=== PATIENT | female | born 1980 | race Caucasian/White ===

== ENCOUNTER 2018-07-07 09:39 | Emergency (ER) | payer MEDICAID ==
[~2018-07-07] VITALS: Ht 170.2 cm; Wt 118.2 kg
[~2018-07-07 09:39] MED LIST: CYCL-1 PO; DIPH25CA83 PO; NABU500T2 PO
[2018-07-07 10:09] LABS: CLARITY,URINE SLIGHTLY CLOUDY (Clear); COLOR,URINE YELLOW (Yellow); GLUCOSE, URINE NEGATIVE (Neg); KETONES,URINE NEGATIVE (Neg); LEUKOCYTE ESTERASE ,URINE NEGATIVE (Neg); NITRITES, URINE NEGATIVE (Neg); OCCULT BLOOD,URINE TRACE-INTACT (Neg); PROTEIN,URINE TRACE mg/dl (Neg); UROBILINOGEN,URINE 0.2 E.U/dL (0.2-1.0)
[2018-07-07 10:10] LABS: UA COLLECTION TYPE CLN CATCH MIDSTREAM; URINE HCG NEGATIVE (NEG)
[2018-07-07 10:16] LABS: MUCUS STRANDS FEW /LPF (Neg); SQUAMOUS EPITHELIAL CELL,UR MANY /LPF (FEW)
[2018-07-07 10:18] LABS: BACTERIA,URINE 2+ /HPF (Neg); RBC,URINE 0-2 /HPF (0-2); RENAL CELLS, URINE FEW /HPF; TRANSITIONAL EPI CELLS,URINE FEW /HPF; WBC,URINE 0-4 /HPF (0-4)
[2018-07-07 10:24] LABS: BASOPHILS % (AUTO) 0.1 % (0-1); EOSINOPHILS % (AUTO) 0 % (0-6); HEMATOCRIT 41.1 % (35.0-45.0); HEMOGLOBIN 13.6 g/dl (12.0-16.0); LYMPHOCYTES # (AUTO) 0.4 X10'3 (1.1-4.8); LYMPHOCYTES % (AUTO) 7.9 % (21-51); MEAN CORPUSCULAR HEMOGLOBIN 28.7 PG (27.0-31.0); MEAN CORPUSCULAR HGB CONC 33.1 % (33.0-36.5); MEAN CORPUSCULAR VOLUME 86.6 FL (78-98); MEAN PLATELET VOLUME 11.1 FL (7.4-10.4); MONOCYTES # (AUTO) 0.2 X10'3 (0-0.9); MONOCYTES % (AUTO) 4.4 % (2-12); NEUTROPHILS # (AUTO) 4.4 X10'3 (1.8-7.7); NEUTROPHILS % (AUTO) 87.6 % (42-75); PLATELET COUNT 181 X10'3 (140-440); RED BLOOD COUNT 4.74 X10'6 (4.20-5.60); RED CELL DISTRIBUTION WIDTH 13.6 % (11.5-14.5)
[2018-07-07 10:30] LABS: PROTHROMBIN TIME 10.4 SECONDS (9.0-12.0)
[2018-07-07 10:32] LABS: ALANINE AMINOTRANSFERASE 82 U/L (12-78); ALBUMIN 2.9 G/DL (3.4-5.0); ALBUMIN/GLOBULIN RATIO 0.6 (1.1-1.5); ALKALINE PHOSPHATASE 111 IU/L (46-116); ANION GAP 10 (8-16); ASPARTATE AMINO TRANSFERASE 51 U/L (10-37); BILIRUBIN,TOTAL 0.2 MG/DL (0.1-1.0); BLOOD UREA NITROGEN 8 MG/DL (7-18); BUN/CREATININE RATIO 7.5 (6.6-38.0); CALCIUM 8.9 MG/DL (8.5-10.1); CHLORIDE 103 MMOL/L (99-107); CREATININE 1.07 MG/DL (0.40-0.90); GLUCOSE 94 MG/DL (70-104); LIPASE 122 U/L (73-393); POTASSIUM 3.4 MMOL/L (3.5-5.1); SODIUM 136 MMOL/L (135-145); TOTAL CARBON DIOXIDE 23.1 MMOL/L (24-32); TOTAL PROTEIN 7.4 G/DL (6.4-8.2); eGFR 58 ML/MIN
[2018-07-07 10:42] LABS: LARGE PLATELETS FEW; PLATELET ESTIMATE NORMAL
[2018-07-07 12:30] VITALS: BP 96/63
[2018-07-07] MEDS ORDERED: ondansetron 4mg rapidly disintigrating tab PO ONE (12:55)
[2018-07-07] MEDS ORDERED: morphine 4 MG/ML inj SYRINge IM ONE (12:55)
[2018-07-07] MEDS ORDERED: DICY10CA88 PO (14:01)
[2018-07-07] MEDS ORDERED: ONDA4TAB12 PO (14:01)
== END 2018-07-07 14:32 | disposition home or self-care (01) ==
LOC: ER 09:40
DX: K52.9 Noninfective gastroenteritis and colitis, unspecified (principal); R19.7 Diarrhea, unspecified; R10.32 Left lower quadrant pain; R91.1 Solitary pulmonary nodule; Z90.49 Acquired absence of other specified parts of digestive tract; Z79.899 Other long term (current) drug therapy; Z59.0 Homelessness
CPT/HCPCS: 36415; 74176; 80053; 81001; 81025; 83690; 85025; 85610; 96372; 99284; J2270

== ENCOUNTER 2018-08-31 09:01 | Emergency (ER) | payer MEDICAID ==
[~2018-08-31] VITALS: Ht 170.2 cm; Wt 123.7 kg
[~2018-08-31 09:01] MED LIST changes: +DICY10CA88 PO; +ONDA4TAB12 PO
--- NOTE | 2018-08-31 09:36 | NUR ---
called telepsych spoke sushant Valencia, initiated consult
--- NOTE | 2018-08-31 09:37 | NUR ---
pt is feeling overwhelmed, [facility], might have lung CX (will find out tommorow), recent use of etoh after 20 months of sobriety, unable to sleep, very tearful at present, boyfriend with her.
[2018-08-31 09:45] LABS: BASOPHILS % (AUTO) 0.4 % (0-1); EOSINOPHILS # (AUTO) 0.2 X10'3 (0-0.9); EOSINOPHILS % (AUTO) 4.3 % (0-6); HEMATOCRIT 40.1 % (35.0-45.0); HEMOGLOBIN 13.4 g/dl (12.0-16.0); LYMPHOCYTES # (AUTO) 0.9 X10'3 (1.1-4.8); LYMPHOCYTES % (AUTO) 16.4 % (21-51); MEAN CORPUSCULAR HEMOGLOBIN 29.2 PG (27.0-31.0); MEAN CORPUSCULAR HGB CONC 33.5 % (33.0-36.5); MEAN CORPUSCULAR VOLUME 87.2 FL (78-98); MONOCYTES # (AUTO) 0.5 X10'3 (0-0.9); MONOCYTES % (AUTO) 9.4 % (2-12); NEUTROPHILS # (AUTO) 3.8 X10'3 (1.8-7.7); NEUTROPHILS % (AUTO) 69.5 % (42-75); PLATELET COUNT 194 X10'3 (140-440); RED CELL DISTRIBUTION WIDTH 14.2 % (11.5-14.5); WHITE BLOOD COUNT 5.5 X10'3 (4.5-11.0)
[2018-08-31 10:00] LABS: ALANINE AMINOTRANSFERASE 27 U/L (12-78); ALBUMIN 3.1 G/DL (3.4-5.0); ALBUMIN/GLOBULIN RATIO 0.7 (1.1-1.5); ALKALINE PHOSPHATASE 87 IU/L (46-116); ANION GAP 10 (8-16); ASPARTATE AMINO TRANSFERASE 15 U/L (10-37); BILIRUBIN,TOTAL 0.2 MG/DL (0.1-1.0); BLOOD UREA NITROGEN 8 MG/DL (7-18); BUN/CREATININE RATIO 8.7 (6.6-38.0); CALCIUM 8.6 MG/DL (8.5-10.1); CHLORIDE 105 MMOL/L (99-107); CREATININE 0.92 MG/DL (0.40-0.90); ETHANOL < 0.010 GM/DL (0.0-0.010); GLUCOSE 99 MG/DL (70-104); POTASSIUM 3.5 MMOL/L (3.5-5.1); SODIUM 139 MMOL/L (135-145); TOTAL CARBON DIOXIDE 24.4 MMOL/L (24-32); TOTAL PROTEIN 7.4 G/DL (6.4-8.2); eGFR 69 ML/MIN
[2018-08-31 10:12] LABS: CLARITY,URINE SLIGHTLY CLOUDY (Clear); COLOR,URINE YELLOW (Yellow); GLUCOSE, URINE NEGATIVE (Neg); KETONES,URINE NEGATIVE (Neg); LEUKOCYTE ESTERASE ,URINE NEGATIVE (Neg); NITRITES, URINE NEGATIVE (Neg); OCCULT BLOOD,URINE TRACE-INTACT (Neg); PROTEIN,URINE NEGATIVE (Neg); URINE HCG NEGATIVE (NEG); UROBILINOGEN,URINE 0.2 E.U/dL (0.2-1.0)
[2018-08-31 10:18] LABS: UA COLLECTION TYPE CLN CATCH MIDSTREAM
[2018-08-31 10:22] LABS: MUCUS STRANDS FEW /LPF (Neg); SQUAMOUS EPITHELIAL CELL,UR MANY /LPF (FEW)
[2018-08-31 10:23] LABS: BACTERIA,URINE 1+ /HPF (Neg); RBC,URINE 0-2 /HPF (0-2); WBC,URINE 0-4 /HPF (0-4)
[2018-08-31 10:33] LABS: URINE AMPHETAMINE SCREEN NEGATIVE (Neg); URINE BARBITUATE SCREEN NEGATIVE (Neg); URINE BENZODIAZEPINES SCREEN NEGATIVE (Neg); URINE CANNABINOID SCREEN POSITIVE (Neg); URINE COCAINE SCREEN NEGATIVE (Neg); URINE METHADONE SCREEN NEGATIVE (Neg); URINE OPIATE SCREEN NEGATIVE (Neg); URINE PHENCYCLIDINE SCREEN NEGATIVE (Neg)
[2018-08-31] MEDS ORDERED: acetaminophen 325mg tablet PO ONE ×2 (10:35→17:05)
--- NOTE | 2018-08-31 11:32 | NUR ---
rcvd call from psych she says will recommend admit will send report
[2018-08-31 11:38] LABS: EOSINOPHILS % (MANUAL) 7.5 % (0-6); LYMPHOCYTES % (MANUAL) 10.5 % (21-51); MONOCYTES % (MANUAL) 6.5 % (2-12); NEUTROPHILS % (MANUAL) 75.5 % (42-75); PLATELET ESTIMATE NORMAL; TOTAL CELLS COUNTED 200
[2018-08-31 11:41] LABS: LARGE PLATELETS FEW
[2018-08-31] MEDS ORDERED: TRAZ-219 PO (11:51)
[2018-08-31] MEDS ORDERED: KEP500T PO (11:51)
[2018-08-31] MEDS ORDERED: VENL75CA55 PO (11:51)
[2018-08-31] MEDS ORDERED: LIT300C PO (11:51)
[2018-08-31] MEDS: levetiracetam 250mg tablet PO SCH (16:57)
[2018-08-31] MEDS: lithium carbonate 300mg SR tablet (LithoBID) PO SCH (20:17)
[2018-08-31] MEDS ORDERED: traZODone 50mg tablet PO SCH (21:00)
--- NOTE | 2018-09-01 02:54 | NUR ---
pt up to bathroom, ambulates without difficulty, took po meds without complaint, now sleeping
--- NOTE | 2018-09-01 05:10 | NUR ---
pt sleeping, gave pt 2 more blankets
--- NOTE | 2018-09-01 06:30 | NUR ---
PATIENT ASLEEP ON GURNEY. RESP UNLABORED. NO DISTRESS NOTED AT PRESENT.
[2018-09-01] MEDS ORDERED: venlafaxine XR 75mg capsule (Q24H) PO SCH ×2 (08:00→08:30)
[2018-09-01] MEDS: levetiracetam 250mg tablet PO SCH ×4 (10:17→20:51)
[2018-09-01] MEDS: venlafaxine XR 37.5mg cap (Q24H) PO SCH (10:18)
--- NOTE | 2018-09-01 11:23 | NUR ---
received report from Beena BARRIOS.
--- NOTE | 2018-09-01 11:29 | NUR ---
pt amb with steady gait to restroom, pt is calm, cooperative, friend at bedside
--- NOTE | 2018-09-01 11:32 | NUR ---
Tawana, clinican with [facility], at bedside to eval pt
--- NOTE | 2018-09-01 11:39 | NUR ---
report to Flor BARRIOS.
--- NOTE | 2018-09-01 12:20 | NUR ---
Patient awake, alert and in no obvious distress. Pt's boyfriend at bedside. Continue to monitor.
--- NOTE | 2018-09-01 14:55 | NUR ---
Patient sleeping on right side. No distress observed. Continue to monitor.
[2018-09-01] MEDS ORDERED: acetaminophen 325mg tablet PO ONE (16:10)
--- NOTE | 2018-09-01 16:43 | NUR ---
Pt's boyfriend at patient's bedside. He brought her denture cream. No distress observed. RN called the [facility] office number. Patient stated she was nervous because she had a PET scan and the results were supposed to be back today. RN left a message at the clinic since they were closed to call her here to give her the results. Her Dr is Dr Estrella.
--- NOTE | 2018-09-01 18:03 | NUR ---
Patient laying on left side awake. No distress observed. Continue to monitor.
--- NOTE | 2018-09-01 19:58 | NUR ---
The patient is resting on her bed. She is awake and pleasant on approach for the evening assessment. The patient stated that she has been feeling overwhelmed with stressors in her life. She stated that the most significant stressor currently is that she is waiting for test results to come back for a possible mass in her lungs. She also has been trying to find a job and is currently living at the [facility] with her . She also is wanting to get her children back in her care but has to have a place to live for them. She stated that she also has pending court warrants for old DUIs. She reports having a poor appetite. She feels she has no energy. She states her mood is "blah" She denies active suicidal thoughts but does endorse passive suicidal thoughts. She denies psychotic symptoms and none were evident during the evening assessment. The patient is aware that she is on a 5150 and psychiatric placement is being sought. She does have insight that she needs help.
[2018-09-01] MEDS: traZODone 50mg tablet PO SCH (20:51)
[2018-09-01] MEDS: lithium carbonate 300mg SR tablet (LithoBID) PO SCH (20:51)
[2018-09-01] MEDS: aripiprazole 5mg tablet PO SCH (20:51)
--- NOTE | 2018-09-01 20:59 | NUR ---
The patient is resting on her bed. Took her HS medications and is laying back on her bed.
--- NOTE | 2018-09-02 00:20 | NUR ---
The patient appears to be asleep.
--- NOTE | 2018-09-02 03:00 | NUR ---
The patient appears to be asleep at this time. She was up briefly to use the bathroom
--- NOTE | 2018-09-02 05:17 | NUR ---
The patient appears to be sleeping at this time
--- NOTE | 2018-09-02 07:02 | NUR ---
Patient sleeping on right side. No restlessness/distress observed. Continue to monitor.
[2018-09-02] MEDS: levetiracetam 250mg tablet PO SCH ×3 (09:14→20:36)
--- NOTE | 2018-09-02 09:50 | NUR ---
Patient stated she is having midsternal CP. No HX of cardiac. Patient's at bedside. RN advised Dr Sawant and ordered ACS protocol. Patient in no distress. Continue to monitor.
[2018-09-02] MEDS: venlafaxine XR 37.5mg cap (Q24H) PO SCH (10:16)
--- NOTE | 2018-09-02 10:30 | NUR ---
Patient states her chest pain has gone away. Pt's skin is warm and dry. No distress observed. Continue to monitor.
[2018-09-02 10:37] LABS: BASOPHILS % (AUTO) 0.3 % (0-1); EOSINOPHILS # (AUTO) 0.3 X10'3 (0-0.9); EOSINOPHILS % (AUTO) 4.7 % (0-6); HEMOGLOBIN 13.7 g/dl (12.0-16.0); LYMPHOCYTES # (AUTO) 1.4 X10'3 (1.1-4.8); LYMPHOCYTES % (AUTO) 18.8 % (21-51); MEAN CORPUSCULAR HEMOGLOBIN 29.1 PG (27.0-31.0); MEAN CORPUSCULAR HGB CONC 33.3 % (33.0-36.5); MEAN CORPUSCULAR VOLUME 87.4 FL (78-98); MEAN PLATELET VOLUME 11.3 FL (7.4-10.4); MONOCYTES # (AUTO) 0.4 X10'3 (0-0.9); MONOCYTES % (AUTO) 5.5 % (2-12); NEUTROPHILS # (AUTO) 5.2 X10'3 (1.8-7.7); NEUTROPHILS % (AUTO) 70.7 % (42-75); PLATELET COUNT 207 X10'3 (140-440); WHITE BLOOD COUNT 7.3 X10'3 (4.5-11.0)
[2018-09-02 10:56] LABS: PARTIAL THROMBOPLASTIN TIME 28 SECONDS (22-32); PROTHROMBIN TIME 9.8 SECONDS (9.0-12.0)
[2018-09-02 10:57] LABS: ALANINE AMINOTRANSFERASE 31 U/L (12-78); ALBUMIN 3.1 G/DL (3.4-5.0); ALBUMIN/GLOBULIN RATIO 0.7 (1.1-1.5); ALKALINE PHOSPHATASE 82 IU/L (46-116); ANION GAP 6 (8-16); ASPARTATE AMINO TRANSFERASE 20 U/L (10-37); BILIRUBIN,TOTAL 0.2 MG/DL (0.1-1.0); BLOOD UREA NITROGEN 11 MG/DL (7-18); BUN/CREATININE RATIO 13.3 (6.6-38.0); CALCIUM 8.5 MG/DL (8.5-10.1); CHLORIDE 102 MMOL/L (99-107); CREATININE 0.83 MG/DL (0.40-0.90); GLUCOSE 114 MG/DL (70-104); POTASSIUM 3.3 MMOL/L (3.5-5.1); SODIUM 136 MMOL/L (135-145); TOTAL CARBON DIOXIDE 27.8 MMOL/L (24-32); TOTAL PROTEIN 7.5 G/DL (6.4-8.2); eGFR 78 ML/MIN
[2018-09-02 11:18] LABS: LARGE PLATELETS FEW; PLATELET ESTIMATE NORMAL
[2018-09-02] MEDS: acetaminophen 325mg tablet PO PRN ×2 (11:58→19:25)
--- NOTE | 2018-09-02 12:35 | NUR ---
Patient is sleeping on left side. No distress observed. continue to monitor.
--- NOTE | 2018-09-02 14:38 | NUR ---
Patient is sleeping on right side. No restlessness observed. Continue to monitor.
--- NOTE | 2018-09-02 15:11 | NUR ---
Faxed Cardiac Workup results to [facility].
[2018-09-02] MEDS ORDERED: ketorolac trometh inj. 60 MG/2 ML VIAL IM ONE (16:00)
[2018-09-02] MEDS ORDERED: ondansetron 4mg rapidly disintigrating tab PO ONE (16:00)
--- NOTE | 2018-09-02 16:40 | NUR ---
RN gave patient IM Toradol and Zofran ODT for MILLER, described as 07/18. Continue to monitor.
--- NOTE | 2018-09-02 17:30 | NUR ---
Patient states her MILLER is now 5/10 and much better than when her headache was 12/10. Patient's at bedside. RN faxed the "medical clearance" for Cardiac workup to [facility] who said they know Viktoria and will probably take her tonight. Continue to monitor.
[2018-09-02 17:45] VITALS: BP 101/69
--- NOTE | 2018-09-02 19:30 | NUR ---
pt cooperative with assessment
[2018-09-02] MEDS: aripiprazole 5mg tablet PO SCH (20:36)
[2018-09-02] MEDS: lithium carbonate 300mg SR tablet (LithoBID) PO SCH (20:36)
--- NOTE | 2018-09-02 21:04 | NUR ---
pt requested to take her trazodone closer to [phone], since she is not quite ready for bed
[2018-09-02] MEDS: traZODone 50mg tablet PO SCH (21:35)
--- NOTE | 2018-09-02 22:00 | NUR ---
pt up to bathroom to void, gait steady, states she feels better after HS meds
--- NOTE | 2018-09-02 22:28 | NUR ---
patient has been accepted to [facility]. Instrument Lens Grinder Apprentice will be here @ apx [phone]
== END 2018-09-02 23:29 ==
LOC: ER 09:01
DX: F32.9 Major depressive disorder, single episode, unspecified (principal); Z90.49 Acquired absence of other specified parts of digestive tract; Z98.890 Other specified postprocedural states; Z59.0 Homelessness; Z79.899 Other long term (current) drug therapy
CPT/HCPCS: 36415; 71045; 80053; 80178; 80305; 80320; 81001; 81025; 84443; 84484; 85025; 85610; 85730; 93005; 96372; 99285; J1885

== ENCOUNTER 2019-12-28 15:33 | Emergency (ER) | payer MEDICAID ==
[~2019-12-28] VITALS: Ht 170.2 cm; Wt 130.0 kg
[~2019-12-28 15:33] MED LIST changes: -CYCL-1 PO; -DICY10CA88 PO; -DIPH25CA83 PO; +KEP500T PO; +LIT300C PO; -NABU500T2 PO; -ONDA4TAB12 PO; +TRAZ-256 PO; +VENL75CA55 PO
[2019-12-28 16:06] LABS: BASOPHILS % (AUTO) 0.3 % (0-1); EOSINOPHILS # (AUTO) 0.4 X10'3 (0-0.9); EOSINOPHILS % (AUTO) 3.5 % (0-6); HEMATOCRIT 37.3 % (35.0-45.0); HEMOGLOBIN 11.9 g/dl (12.0-16.0); LYMPHOCYTES # (AUTO) 1.5 X10'3 (1.1-4.8); MEAN CORPUSCULAR HEMOGLOBIN 27.2 PG (27.0-31.0); MEAN CORPUSCULAR HGB CONC 31.8 g/dL (33.0-36.5); MEAN CORPUSCULAR VOLUME 85.7 FL (78-98); MEAN PLATELET VOLUME 9.9 FL (7.4-10.4); MONOCYTES # (AUTO) 0.6 X10'3 (0-0.9); MONOCYTES % (AUTO) 5.5 % (2-12); NEUTROPHILS # (AUTO) 7.8 X10'3 (1.8-7.7); NEUTROPHILS % (AUTO) 75.7 % (42-75); PLATELET COUNT 267 X10'3 (140-440); RED BLOOD COUNT 4.35 X10'6 (4.20-5.60); RED CELL DISTRIBUTION WIDTH 15.3 % (11.5-14.5); WHITE BLOOD COUNT 10.3 X10'3 (4.5-11.0)
[2019-12-28 16:10] LABS: URINE HCG NEGATIVE (NEG)
[2019-12-28 16:13] LABS: CLARITY,URINE SLIGHTLY CLOUDY (Clear); COLOR,URINE YELLOW (Yellow); GLUCOSE, URINE NEGATIVE (Neg); KETONES,URINE NEGATIVE (Neg); LEUKOCYTE ESTERASE ,URINE NEGATIVE (Neg); NITRITES, URINE NEGATIVE (Neg); OCCULT BLOOD,URINE TRACE-INTACT (Neg); PROTEIN,URINE NEGATIVE (Neg); UROBILINOGEN,URINE 0.2 E.U/dL (0.2-1.0)
[2019-12-28 16:22] LABS: ALANINE AMINOTRANSFERASE 115 U/L (12-78); ALBUMIN 3.2 G/DL (3.4-5.0); ALBUMIN/GLOBULIN RATIO 0.7 (1.1-1.5); ALKALINE PHOSPHATASE 129 IU/L (46-116); ANION GAP 7 (8-16); ASPARTATE AMINO TRANSFERASE 60 U/L (10-37); BILIRUBIN,TOTAL 0.2 MG/DL (0.1-1.0); BLOOD UREA NITROGEN 7 MG/DL (7-18); CALCIUM 9.1 MG/DL (8.5-10.1); CHLORIDE 106 MMOL/L (99-107); GLUCOSE 97 MG/DL (70-104); LIPASE 210 U/L (73-393); POTASSIUM 3.6 MMOL/L (3.5-5.1); SODIUM 140 MMOL/L (135-145); TOTAL CARBON DIOXIDE 26.6 MMOL/L (24-32); TOTAL PROTEIN 7.5 G/DL (6.4-8.2); eGFR 62 ML/MIN
[2019-12-28 16:24] LABS: UA COLLECTION TYPE CLN CATCH MIDSTREAM
[2019-12-28 16:25] LABS: BACTERIA,URINE 2+ /HPF (Neg); RBC,URINE 0-2 /HPF (0-2); SQUAMOUS EPITHELIAL CELL,UR MANY /LPF (FEW); WBC,URINE 0-4 /HPF (0-4)
[2019-12-28] MEDS ORDERED: ondansetron/PF 4mg/2ml inj IV ONE (17:35)
[2019-12-28] MEDS ORDERED: normal saline 1000ML IV soln IVB ONE (17:35)
[2019-12-28] MEDS ORDERED: ketorolac tromethamine 15mg/ml inj. IV ONE (18:20)
[2019-12-28 19:54] VITALS: BP 130/79
== END 2019-12-28 19:55 | disposition home or self-care (01) ==
LOC: ER 15:33
DX: R10.12 Left upper quadrant pain (principal); F32.9 Major depressive disorder, single episode, unspecified; F15.90 Other stimulant use, unspecified, uncomplicated; Z90.49 Acquired absence of other specified parts of digestive tract; Z98.890 Other specified postprocedural states; Z59.0 Homelessness; Z79.899 Other long term (current) drug therapy
CPT/HCPCS: 36415; 80053; 81001; 81025; 83690; 85025; 96374; 96375; 99284; J1885; J2405; J7030

== ENCOUNTER 2021-08-15 07:54 | Emergency (ER) | payer MEDICAID ==
[~2021-08-15] VITALS: Ht 162.6 cm; Wt 122.7 kg
[2021-08-15 08:05] VITALS: BP 129/93
[2021-08-15] MEDS ORDERED: BUDE180A INH (10:50)
[2021-08-15] MEDS ORDERED: BENZ-38 PO (10:50)
[2021-08-15] MEDS ORDERED: ALBU6.7H9 INH (10:50)
== END 2021-08-15 11:36 | disposition home or self-care (01) ==
LOC: ER 07:56
DX: U07.1 COVID-19 (principal); R05.9 Cough, unspecified; G40.909 Epilepsy, unspecified, not intractable, without status epilepticus; F15.90 Other stimulant use, unspecified, uncomplicated; Z59.00 Homelessness unspecified; Z79.899 Other long term (current) drug therapy; Z90.89 Acquired absence of other organs; Z98.891 History of uterine scar from previous surgery
CPT/HCPCS: 87502; 87503; 87635; 99283; C9803

== ENCOUNTER 2021-08-23 10:48 | Emergency (ER) | payer MEDICAID ==
[~2021-08-23] VITALS: Ht 172.7 cm; Wt 122.7 kg
[~2021-08-23 10:48] MED LIST changes: +ALBU6.7H9 INH; +BENZ-38 PO; +BUDE180A INH
[2021-08-23 11:03] VITALS: BP 138/94
[2021-08-23 11:53] LABS: HEMOGLOBIN 12.4 g/dl (12.0-16.0); RED CELL DISTRIBUTION WIDTH 16.4 % (11.5-14.5)
[2021-08-23 11:55] LABS: BASOPHILS % (AUTO) 0.4 % (0-1); EOSINOPHILS # (AUTO) 0.3 X10'3 (0-0.9); EOSINOPHILS % (AUTO) 3.8 % (0-6); HEMATOCRIT 38.1 % (35.0-45.0); LYMPHOCYTES # (AUTO) 1.3 X10'3 (1.1-4.8); LYMPHOCYTES % (AUTO) 18.4 % (21-51); MEAN CORPUSCULAR HEMOGLOBIN 29.9 PG (27.0-31.0); MEAN CORPUSCULAR HGB CONC 32.6 g/dL (33.0-36.5); MEAN CORPUSCULAR VOLUME 91.8 FL (78-98); MEAN PLATELET VOLUME 9.6 FL (7.4-10.4); MONOCYTES # (AUTO) 0.4 X10'3 (0-0.9); MONOCYTES % (AUTO) 5.3 % (2-12); NEUTROPHILS % (AUTO) 72.1 % (42-75); PLATELET COUNT 258 X10'3 (140-440); RED BLOOD COUNT 4.15 X10'6 (4.20-5.60)
[2021-08-23 12:03] LABS: ALANINE AMINOTRANSFERASE 19 U/L (12-78); ALBUMIN 3.2 G/DL (3.4-5.0); ALBUMIN/GLOBULIN RATIO 0.7 (1.1-1.5); ALKALINE PHOSPHATASE 98 IU/L (46-116); ANION GAP 10 (8-16); ASPARTATE AMINO TRANSFERASE 17 U/L (10-37); BILIRUBIN,TOTAL 0.2 MG/DL (0.1-1.0); BLOOD UREA NITROGEN 9 MG/DL (7-18); BUN/CREATININE RATIO 9.4 (6.6-38.0); CALCIUM 9.7 MG/DL (8.5-10.1); CHLORIDE 110 MMOL/L (99-107); CREATININE 0.96 MG/DL (0.40-0.90); GLUCOSE 126 MG/DL (70-104); POTASSIUM 3.5 MMOL/L (3.5-5.1); SODIUM 142 MMOL/L (135-145); TOTAL CARBON DIOXIDE 22.4 MMOL/L (24-32); TOTAL PROTEIN 7.6 G/DL (6.4-8.2); eGFR 65 ML/MIN
[2021-08-23] MEDS ORDERED: BENZ-38 PO (13:15)
[2021-08-23 14:06] LABS: C-REACTIVE PROTEIN 0.59 MG/DL (0.0-0.5)
== END 2021-08-23 13:29 | disposition home or self-care (01) ==
LOC: ER 10:49
DX: U07.1 COVID-19 (principal); B34.9 Viral infection, unspecified; R05.9 Cough, unspecified; R06.02 Shortness of breath; R43.8 Other disturbances of smell and taste; F32.9 Major depressive disorder, single episode, unspecified; Z86.69 Personal history of other diseases of the nervous system and sense organs; Z90.49 Acquired absence of other specified parts of digestive tract; Z98.890 Other specified postprocedural states; Z59.00 Homelessness unspecified; Z79.899 Other long term (current) drug therapy
CPT/HCPCS: 36415; 71045; 80053; 83880; 84145; 84484; 85025; 86140; 93005; 99285

== ENCOUNTER 2021-11-08 12:05 | Emergency (ER) | payer MEDICAID ==
[~2021-11-08] VITALS: Ht 172.7 cm; Wt 125.9 kg
[~2021-11-08 12:05] MED LIST changes: -BENZ-38 PO
[2021-11-08 12:41] LABS: CLARITY,URINE SLIGHTLY CLOUDY (Clear); COLOR,URINE YELLOW (Yellow); GLUCOSE, URINE NEGATIVE (Neg); KETONES,URINE NEGATIVE (Neg); LEUKOCYTE ESTERASE ,URINE NEGATIVE (Neg); NITRITES, URINE NEGATIVE (Neg); OCCULT BLOOD,URINE NEGATIVE (Neg); PH,URINE 6.5 (4.8-8.0); PROTEIN,URINE NEGATIVE (Neg); URINE HCG NEGATIVE (NEG); UROBILINOGEN,URINE 0.2 E.U/dL (0.2-1.0)
[2021-11-08 12:51] LABS: BACTERIA,URINE FEW /HPF (Neg); MUCUS STRANDS MODERATE /LPF (Neg); RBC,URINE NONE SEEN /HPF (0-2); SQUAMOUS EPITHELIAL CELL,UR MODERATE /LPF (FEW); UA COLLECTION TYPE CLN CATCH MIDSTREAM; WBC,URINE 0-4 /HPF (0-4)
[2021-11-08 12:55] LABS: BASOPHILS # (AUTO) 0.1 X10'3 (0-0.2); BASOPHILS % (AUTO) 0.5 % (0-1); EOSINOPHILS # (AUTO) 0.3 X10'3 (0-0.9); EOSINOPHILS % (AUTO) 2.3 % (0-6); HEMATOCRIT 40.6 % (35.0-45.0); HEMOGLOBIN 13.1 g/dl (12.0-16.0); LYMPHOCYTES # (AUTO) 1.3 X10'3 (1.1-4.8); LYMPHOCYTES % (AUTO) 10.5 % (21-51); MEAN CORPUSCULAR HEMOGLOBIN 30.1 PG (27.0-31.0); MEAN CORPUSCULAR HGB CONC 32.4 g/dL (33.0-36.5); MEAN CORPUSCULAR VOLUME 92.9 FL (78-98); MEAN PLATELET VOLUME 9.6 FL (7.4-10.4); MONOCYTES # (AUTO) 0.5 X10'3 (0-0.9); MONOCYTES % (AUTO) 4.3 % (2-12); NEUTROPHILS # (AUTO) 10.1 X10'3 (1.8-7.7); NEUTROPHILS % (AUTO) 82.4 % (42-75); PLATELET COUNT 438 X10'3 (140-440); RED BLOOD COUNT 4.37 X10'6 (4.20-5.60); RED CELL DISTRIBUTION WIDTH 15.6 % (11.5-14.5); WHITE BLOOD COUNT 12.2 X10'3 (4.5-11.0)
[2021-11-08] MEDS ORDERED: normal saline 1000ML IV soln IVB ONE (13:00)
[2021-11-08 13:12] LABS: ALANINE AMINOTRANSFERASE 48 U/L (12-78); ALBUMIN 3.4 G/DL (3.4-5.0); ALBUMIN/GLOBULIN RATIO 0.8 (1.1-1.5); ALKALINE PHOSPHATASE 132 IU/L (46-116); ANION GAP 11 (8-16); ASPARTATE AMINO TRANSFERASE 28 U/L (10-37); BILIRUBIN,TOTAL 0.2 MG/DL (0.1-1.0); BLOOD UREA NITROGEN 11 MG/DL (7-18); BUN/CREATININE RATIO 13.4 (6.6-38.0); CALCIUM 9.8 MG/DL (8.5-10.1); CHLORIDE 107 MMOL/L (99-107); CREATININE 0.82 MG/DL (0.40-0.90); GLUCOSE 115 MG/DL (70-104); LIPASE 222 U/L (73-393); POTASSIUM 3.7 MMOL/L (3.5-5.1); SODIUM 138 MMOL/L (135-145); TOTAL CARBON DIOXIDE 19.7 MMOL/L (24-32); TOTAL PROTEIN 7.9 G/DL (6.4-8.2); eGFR 77 ML/MIN
[2021-11-08 13:53] VITALS: BP 129/81
== END 2021-11-08 14:36 | disposition home or self-care (01) ==
LOC: ER 12:06
DX: K59.00 Constipation, unspecified (principal); G40.909 Epilepsy, unspecified, not intractable, without status epilepticus; F15.90 Other stimulant use, unspecified, uncomplicated; Z90.49 Acquired absence of other specified parts of digestive tract; Z87.19 Personal history of other diseases of the digestive system; Z79.899 Other long term (current) drug therapy; Z98.891 History of uterine scar from previous surgery; Z59.00 Homelessness unspecified
CPT/HCPCS: 36415; 74176; 80053; 81001; 81025; 83690; 85025; 96360; 99284; J7030

== ENCOUNTER 2022-10-03 10:54 | Emergency (ER) | payer MEDICAID ==
[~2022-10-03] VITALS: Ht 170.2 cm; Wt 122.0 kg
[~2022-10-03 10:54] MED LIST changes: +ALBU6.7H14 INH; -ALBU6.7H9 INH
[2022-10-03 11:08] VITALS: BP 111/71
[2022-10-03 12:01] LABS: EOSINOPHILS # (AUTO) 0.4 X10'3 (0-0.9); HEMOGLOBIN 11.1 g/dl (12.0-16.0)
[2022-10-03 12:03] LABS: BASOPHILS % (AUTO) 0.6 % (0-1); EOSINOPHILS % (AUTO) 4.1 % (0-6); HEMATOCRIT 34.9 % (35.0-45.0); LYMPHOCYTES # (AUTO) 1.5 X10'3 (1.1-4.8); LYMPHOCYTES % (AUTO) 17.1 % (21-51); MEAN CORPUSCULAR HEMOGLOBIN 29.4 PG (27.0-31.0); MEAN CORPUSCULAR HGB CONC 31.8 g/dL (33.0-36.5); MEAN CORPUSCULAR VOLUME 92.5 FL (78-98); MEAN PLATELET VOLUME 9.3 FL (7.4-10.4); MONOCYTES # (AUTO) 0.5 X10'3 (0-0.9); NEUTROPHILS # (AUTO) 6.2 X10'3 (1.8-7.7); NEUTROPHILS % (AUTO) 72.2 % (42-75); PLATELET COUNT 269 X10'3 (140-440); RED BLOOD COUNT 3.78 X10'6 (4.20-5.60); RED CELL DISTRIBUTION WIDTH 14.8 % (11.5-14.5); WHITE BLOOD COUNT 8.6 X10'3 (4.5-11.0)
[2022-10-03 12:09] LABS: CLARITY,URINE SLIGHTLY CLOUDY (Clear); COLOR,URINE YELLOW (Yellow); GLUCOSE, URINE NEGATIVE (Neg); KETONES,URINE NEGATIVE (Neg); LEUKOCYTE ESTERASE ,URINE NEGATIVE (Neg); NITRITES, URINE NEGATIVE (Neg); OCCULT BLOOD,URINE NEGATIVE (Neg); PH,URINE 5.5 (4.8-8.0); PROTEIN,URINE NEGATIVE (Neg); UROBILINOGEN,URINE 0.2 E.U/dL (0.2-1.0)
[2022-10-03 12:11] LABS: URINE HCG NEGATIVE (NEG)
[2022-10-03 12:13] LABS: UA COLLECTION TYPE CLN CATCH MIDSTREAM
[2022-10-03 12:14] LABS: SQUAMOUS EPITHELIAL CELL,UR MANY /LPF (FEW)
[2022-10-03 12:16] LABS: ALANINE AMINOTRANSFERASE 37 U/L (12-78); ALBUMIN 3.4 G/DL (3.4-5.0); ALBUMIN/GLOBULIN RATIO 0.9 (1.1-1.5); ALKALINE PHOSPHATASE 113 IU/L (46-116); ANION GAP 8 (8-16); ASPARTATE AMINO TRANSFERASE 27 U/L (10-37); BILIRUBIN,TOTAL 0.2 MG/DL (0.1-1.0); BLOOD UREA NITROGEN 9 MG/DL (7-18); BUN/CREATININE RATIO 9.3 (6.6-38.0); CALCIUM 9.5 MG/DL (8.5-10.1); CHLORIDE 103 MMOL/L (99-107); CREATININE 0.97 MG/DL (0.40-0.90); ETHANOL < 0.010 GM/DL (0.0-0.010); GLUCOSE 103 MG/DL (70-104); SODIUM 138 MMOL/L (135-145); TOTAL CARBON DIOXIDE 27.5 MMOL/L (24-32); TOTAL PROTEIN 7.1 G/DL (6.4-8.2); eGFR 63 ML/MIN
[2022-10-03 12:18] LABS: BACTERIA,URINE 2+ /HPF (Neg); RBC,URINE 0-2 /HPF (0-2); WBC,URINE 0-4 /HPF (0-4)
[2022-10-03 12:30] LABS: URINE AMPHETAMINE SCREEN NEGATIVE (Neg); URINE BARBITUATE SCREEN NEGATIVE (Neg); URINE BENZODIAZEPINES SCREEN POSITIVE (Neg); URINE CANNABINOID SCREEN NEGATIVE (Neg); URINE COCAINE SCREEN NEGATIVE (Neg); URINE METHADONE SCREEN NEGATIVE (Neg); URINE OPIATE SCREEN NEGATIVE (Neg); URINE PHENCYCLIDINE SCREEN NEGATIVE (Neg)
[2022-10-03] MEDS ORDERED: LORA-269 PO (13:43)
== END 2022-10-03 14:26 | disposition home or self-care (01) ==
LOC: ER 10:57
DX: F41.9 Anxiety disorder, unspecified (principal); R20.2 Paresthesia of skin; F15.20 Other stimulant dependence, uncomplicated; Z90.49 Acquired absence of other specified parts of digestive tract; Z98.890 Other specified postprocedural states; Z59.00 Homelessness unspecified
CPT/HCPCS: 36415; 80053; 80305; 80320; 81001; 81025; 82140; 83735; 85025; 99283

== ENCOUNTER 2022-12-19 08:28 | Emergency (ER) | payer MEDICAID ==
[~2022-12-19] VITALS: Ht 170.2 cm; Wt 122.7 kg
[~2022-12-19 08:28] MED LIST changes: +LORA-269 PO
[2022-12-19] MEDS ORDERED: LORazepam 2 mg/ml vial IV ONE (08:50)
[2022-12-19] MEDS ORDERED: normal saline 1000ML IV soln IVB ONE (08:50)
[2022-12-19] MEDS ORDERED: ketorolac trometh. 30mg/ml inj. IV ONE (08:50)
[2022-12-19] MEDS ORDERED: haloperidol lactate 5mg/ml inj IVH ONE (08:50)
[2022-12-19] MEDS ORDERED: diphenhydrAMINE 50 mg/ml inj IV ONE (08:50)
--- NOTE | 2022-12-19 10:18 | NUR ---
PT ordered IV Bendryl, Ativan, Ketorolac, and Haldol. [employer] Clerk aware of hospital policy - administered Haldol IV. Pt asymptomatic and comfortable at this time. [employer] Law Clerk monitoring QT interval via tele.
[2022-12-19 11:21] VITALS: BP 145/76
== END 2022-12-19 11:23 | disposition home or self-care (01) ==
LOC: ER 08:28
DX: G43.909 Migraine, unspecified, not intractable, without status migrainosus (principal); Z90.49 Acquired absence of other specified parts of digestive tract; Z98.890 Other specified postprocedural states; Z59.00 Homelessness unspecified
CPT/HCPCS: 96374; 96375; 99284; J1200; J1885; J2060; J7030

== ENCOUNTER 2023-02-06 07:20 | Emergency (ER) | payer MEDICAID ==
[~2023-02-06] VITALS: Ht 170.2 cm; Wt 130.4 kg
[2023-02-06] MEDS ORDERED: diphenhydrAMINE 50 mg/ml inj IV ONE (07:35)
[2023-02-06] MEDS ORDERED: proCHLORperazine 10 MG/2 ml inj IV ONE (07:35)
[2023-02-06] MEDS ORDERED: diazepam inj 5 MG/ML inj. IV ONE (07:35)
[2023-02-06 10:29] VITALS: BP 120/81
== END 2023-02-06 10:33 | disposition home or self-care (01) ==
LOC: ER 07:21
DX: G43.909 Migraine, unspecified, not intractable, without status migrainosus (principal); R11.0 Nausea; F15.90 Other stimulant use, unspecified, uncomplicated; Z59.00 Homelessness unspecified; Z90.49 Acquired absence of other specified parts of digestive tract; Z98.891 History of uterine scar from previous surgery; Z79.899 Other long term (current) drug therapy
CPT/HCPCS: 96374; 96375; 99284; J0780; J1200; J3360; J7030

== ENCOUNTER 2023-06-01 10:47 | Emergency (ER) | payer MEDICAID ==
[~2023-06-01] VITALS: Ht 170.2 cm; Wt 139.8 kg
[2023-06-01 11:05] VITALS: BP 127/76; PULSE 64; RESP 18; TEMP 97; O2SAT 95
== END 2023-06-01 11:42 | disposition home or self-care (01) ==
LOC: ER 10:47
DX: F03.90 Unspecified dementia, unspecified severity, without behavioral disturbance, psychotic disturbance, mood disturbance, and anxiety (principal); Z53.21 Procedure and treatment not carried out due to patient leaving prior to being seen by health care provider
CPT/HCPCS: 99281

== ENCOUNTER 2023-12-21 14:03 | Emergency (ER) | payer MEDICAID ==
[~2023-12-21] VITALS: Ht 170.2 cm; Wt 135.6 kg
[2023-12-21 14:13] VITALS: TEMP 97.3
[2023-12-21] MEDS: diphenhydrAMINE 25mg capsule PO ONE (16:20)
[2023-12-21 16:23] VITALS: BP 133/55; PULSE 68; RESP 16; O2SAT 100
[2023-12-21 16:58] LABS: BASOPHILS % (AUTO) 0.5 % (0-1); EOSINOPHILS # (AUTO) 0.3 X10'3 (0-0.9); HEMATOCRIT 32.3 % (35.0-45.0); LYMPHOCYTES # (AUTO) 1.6 X10'3 (1.1-4.8); LYMPHOCYTES % (AUTO) 26.2 % (21-51); MEAN CORPUSCULAR HEMOGLOBIN 29.5 PG (27.0-31.0); MEAN CORPUSCULAR HGB CONC 30.9 g/dL (33.0-36.5); MEAN CORPUSCULAR VOLUME 95.5 FL (78-98); MONOCYTES # (AUTO) 0.6 X10'3 (0-0.9); MONOCYTES % (AUTO) 10.2 % (2-12); NEUTROPHILS # (AUTO) 3.5 X10'3 (1.8-7.7); NEUTROPHILS % (AUTO) 58.1 % (42-75); PLATELET COUNT 281 X10'3 (140-440); RED BLOOD COUNT 3.38 X10'6 (4.20-5.60); RED CELL DISTRIBUTION WIDTH 17.3 % (11.5-14.5); WHITE BLOOD COUNT 6.1 X10'3 (4.5-11.0)
[2023-12-21 17:17] LABS: ALBUMIN 2.9 G/DL (3.4-5.0); ANION GAP 4 (8-16); BLOOD UREA NITROGEN 7 MG/DL (7-18); BUN/CREATININE RATIO 7.8 (10.0-20.0); CALCIUM 9.5 MG/DL (8.5-10.1); CHLORIDE 105 MMOL/L (99-107); GLUCOSE 100 MG/DL (70-104); POTASSIUM 3.8 MMOL/L (3.5-5.1); PRO BRAIN NATRIURETIC PEPTIDE 504 PG/ML (0-125); SODIUM 140 MMOL/L (135-145); TOTAL CARBON DIOXIDE 30.6 MMOL/L (24-32); eCRCL 79 ML/MIN; eGFR 69 ML/MIN
[2023-12-21] MEDS ORDERED: ALBU8HFA INH (17:22)
[2023-12-21] MEDS ORDERED: PRED10TA23 PO (17:22)
== END 2023-12-21 17:36 | disposition home or self-care (01) ==
LOC: ER 14:03
DX: R06.01 Orthopnea (principal); F41.9 Anxiety disorder, unspecified; F32.A Depression, unspecified; Z98.890 Other specified postprocedural states; Z90.49 Acquired absence of other specified parts of digestive tract; Z59.00 Homelessness unspecified
CPT/HCPCS: 36415; 71045; 80048; 83880; 84484; 85025; 93005; 99285; Q0163

== ENCOUNTER 2024-03-23 11:58 | Emergency (ER) | payer MEDICAID ==
[~2024-03-23] VITALS: Ht 170.2 cm; Wt 130.7 kg
[2024-03-23 12:37] LABS: BASOPHILS # (AUTO) 0.1 X10'3 (0-0.2); BASOPHILS % (AUTO) 0.5 % (0-1); EOSINOPHILS # (AUTO) 0.5 X10'3 (0-0.9); EOSINOPHILS % (AUTO) 3.7 % (0-6); HEMATOCRIT 37.1 % (35.0-45.0); HEMOGLOBIN 11.4 g/dl (12.0-16.0); LYMPHOCYTES # (AUTO) 1.8 X10'3 (1.1-4.8); MEAN CORPUSCULAR HEMOGLOBIN 26.8 PG (27.0-31.0); MEAN CORPUSCULAR HGB CONC 30.7 g/dL (33.0-36.5); MEAN CORPUSCULAR VOLUME 87.3 FL (78-98); MEAN PLATELET VOLUME 9.7 FL (7.4-10.4); MONOCYTES # (AUTO) 0.6 X10'3 (0-0.9); MONOCYTES % (AUTO) 4.5 % (2-12); NEUTROPHILS # (AUTO) 9.7 X10'3 (1.8-7.7); NEUTROPHILS % (AUTO) 77.3 % (42-75); PLATELET COUNT 394 X10'3 (140-440); RED BLOOD COUNT 4.25 X10'6 (4.20-5.60); RED CELL DISTRIBUTION WIDTH 15.6 % (11.5-14.5); WHITE BLOOD COUNT 12.6 X10'3 (4.5-11.0)
[2024-03-23 12:58] LABS: ALBUMIN 2.9 G/DL (3.4-5.0); ANION GAP 7 (8-16); BLOOD UREA NITROGEN 7 MG/DL (7-18); BUN/CREATININE RATIO 5.9 (10.0-20.0); CALCIUM 10.1 MG/DL (8.5-10.1); CHLORIDE 104 MMOL/L (99-107); CREATININE 1.18 MG/DL (0.40-0.90); ETHANOL < 10 MG/DL (<10); GLUCOSE 108 MG/DL (70-104); POTASSIUM 3.3 MMOL/L (3.5-5.1); SODIUM 137 MMOL/L (135-145); THYROID STIMULATING HORMONE 1.26 ulU/ml (0.34-4.50); TOTAL CARBON DIOXIDE 25.9 MMOL/L (24-32); eCRCL 60 ML/MIN; eGFR 50 ML/MIN
[2024-03-23 13:05] LABS: BILIRUBIN,URINE NEGATIVE (Neg); CLARITY,URINE SLIGHTLY CLOUDY (Clear); COLOR,URINE YELLOW (Yellow); GLUCOSE, URINE NEGATIVE (Neg); KETONES,URINE NEGATIVE (Neg); LEUKOCYTE ESTERASE ,URINE SMALL (Neg); NITRITES, URINE NEGATIVE (Neg); OCCULT BLOOD,URINE TRACE-INTACT (Neg); PH,URINE 6.5 (4.8-8.0); PROTEIN,URINE NEGATIVE (Neg); UROBILINOGEN,URINE 0.2 E.U/dL (0.2-1.0)
[2024-03-23 13:09] LABS: UA COLLECTION TYPE CLN CATCH MIDSTREAM
[2024-03-23 13:17] LABS: URINE HCG NEGATIVE (NEG)
[2024-03-23 13:18] LABS: URINE AMPHETAMINE SCREEN NEGATIVE (Neg); URINE BARBITUATE SCREEN NEGATIVE (Neg); URINE BENZODIAZEPINES SCREEN NEGATIVE (Neg); URINE CANNABINOID SCREEN NEGATIVE (Neg); URINE COCAINE SCREEN NEGATIVE (Neg); URINE METHADONE SCREEN NEGATIVE (Neg); URINE OPIATE SCREEN NEGATIVE (Neg); URINE PHENCYCLIDINE SCREEN NEGATIVE (Neg)
[2024-03-23 13:22] LABS: BACTERIA,URINE 3+ /HPF (Neg); RBC,URINE 0-2 /HPF (0-2); SQUAMOUS EPITHELIAL CELL,UR MANY /LPF (FEW); WBC,URINE 0-4 /HPF (0-4)
[2024-03-23] MEDS ORDERED: ATOR20TA66 PO (19:37)
[2024-03-23] MEDS ORDERED: DULO60CA65 PO (19:37)
[2024-03-23] MEDS ORDERED: MODA100T31 PO (19:37)
[2024-03-23] MEDS ORDERED: LEVO125T8 PO (19:37)
[2024-03-23] MEDS ORDERED: LAMO200T10 PO (19:37)
[2024-03-23] MEDS ORDERED: CLON0.2T PO (19:37)
[2024-03-23] MEDS ORDERED: CHOL20003 PO (19:37)
[2024-03-23] MEDS ORDERED: RIME75TA PO (19:37)
[2024-03-23] MEDS ORDERED: LITH300C PO (19:37)
[2024-03-23] MEDS ORDERED: SUMA100T16 PO (19:37)
[2024-03-23] MEDS ORDERED: TOPI25TA49 (19:37)
[2024-03-23] MEDS ORDERED: INDLA60C PO (19:37)
[2024-03-23] MEDS ORDERED: ATOG30TA (19:37)
[2024-03-23] MEDS ORDERED: OMEP40CA21 PO (19:37)
[2024-03-23] MEDS ORDERED: SEMA0.258 (19:37)
[2024-03-23] MEDS ORDERED: ESZO1TAB13 PO (19:37)
[2024-03-23] MEDS ORDERED: QUET50TA24 PO (19:37)
[2024-03-23] MEDS ORDERED: MELO-102 PO (19:37)
[2024-03-23] MEDS ORDERED: FOLI1TAB27 PO (19:37)
[2024-03-23] MEDS ORDERED: CETI10TA14 PO (19:37)
[2024-03-23] MEDS ORDERED: PRIM125T PO (19:37)
[2024-03-23 21:21] LABS: ALANINE AMINOTRANSFERASE 17 U/L (12-78); ALBUMIN/GLOBULIN RATIO 0.7 (1.1-1.5); ALKALINE PHOSPHATASE 117 IU/L (46-116); ASPARTATE AMINO TRANSFERASE 12 U/L (10-37); BILIRUBIN,TOTAL 0.2 MG/DL (0.1-1.0); TOTAL PROTEIN 7.3 G/DL (6.4-8.2)
[2024-03-23] MEDS: acetaminophen 325mg tablet PO ONE (21:46)
[2024-03-23] MEDS ORDERED: SUMAtriptan 25 MG tablet PO PRN (22:50)
[2024-03-23] MEDS: QUEtiapine 25mg tablet PO SCH (22:57)
[2024-03-23] MEDS: cetirizine 10mg tablet PO ONE (22:57)
[2024-03-23] MEDS: cloNIDine 0.1 mg tablet PO ONE (22:57)
[2024-03-23] MEDS: lamoTRIgine 100mg tablet PO SCH (22:58)
[2024-03-23] MEDS ORDERED: cetirizine 10mg tablet PO ONE (23:00)
[2024-03-23] MEDS: zolpidem 5mg tablet PO SCH (23:04)
[2024-03-23] MEDS ORDERED: ATOG30TA PO (23:21)
[2024-03-23] MEDS ORDERED: PRIM50TA5 PO (23:21)
[2024-03-23] MEDS ORDERED: TOP25T PO (23:21)
[2024-03-24] MEDS: topiramate 25mg tablet PO SCH (00:48)
[2024-03-24] MEDS: primidone 50mg tablet PO SCH (00:48)
[2024-03-24] MEDS: lithium carbonate 150mg capsule PO SCH (00:52)
[2024-03-24 06:01] VITALS: BP 99/61; PULSE 64; RESP 12; TEMP 96.8; O2SAT 97
[2024-03-24] MEDS: modafinil 100mg tablet PO SCH (08:33)
[2024-03-24] MEDS: MELOXICAM 7.5 MG TABLET PO SCH (08:33)
[2024-03-24] MEDS: propranolol LA 60 MG cap.SA.24H PO SCH (08:33)
[2024-03-24] MEDS: duloxetine 30mg CAPSULE.DR PO SCH (08:34)
[2024-03-24] MEDS: cloNIDine 0.1 mg tablet PO SCH (08:34)
[2024-03-24] MEDS: levoTHYROXINE 125mcg tablet PO SCH (08:34)
[2024-03-24] MEDS: cholecalciferol (vitamin D3) 1,000 unit (25mcg) tablet PO SCH (08:35)
[2024-03-24] MEDS: folic acid 1mg tablet PO SCH (08:36)
[2024-03-24] MEDS: atorvastatin 20mg tablet PO SCH (08:36)
[2024-03-24] MEDS: pantoprazole 40mg Tablet.DR PO SCH (08:36)
[2024-03-24] MEDS ORDERED: ATOGEPANT PO SCH (21:00)
[2024-03-24] MEDS ORDERED: cetirizine 10mg tablet PO SCH (21:00)
[2024-03-25] MEDS ORDERED: RIMEGEPANT SULFATE PO SCH (08:00)
== END 2024-03-24 10:34 ==
LOC: ER 11:59
DX: R45.851 Suicidal ideations (principal); Z20.822 Contact with and (suspected) exposure to COVID-19; G43.909 Migraine, unspecified, not intractable, without status migrainosus; F32.A Depression, unspecified; Z79.899 Other long term (current) drug therapy; Z79.2 Long term (current) use of antibiotics; Z90.49 Acquired absence of other specified parts of digestive tract; Z98.890 Other specified postprocedural states
CPT/HCPCS: 36415; 80053; 80178; 80305; 80320; 81001; 81025; 84443; 85025; 87811; 99285

== ENCOUNTER 2024-12-15 08:36 | Inpatient (IN) | payer MEDICAID ==
[~2024-12-15] VITALS: Ht 170.2 cm; Wt 132.6 kg
[~2024-12-15 08:36] MED LIST changes: -ALBU6.7H14 INH; +ATOG30TA PO; +ATOR20TA66 PO; -BUDE180A INH; +CETI10TA14 PO; +CHOL20003 PO; +DULO30CA52 PO; +ESZO1TAB13 PO; +FOLI1TAB27 PO; +INDLA60C PO; -KEP500T PO; +LAMO200T10 PO; +LEVO125T8 PO; -LIT300C PO; +LITH300C PO; -LORA-269 PO; +OMEP40CA21 PO; +PALI3TAB5 PO; +PRIM50TA5 PO; +QUET100T34 PO; +SEMA1PEN3 SQ; +TOP25T PO; -TRAZ-256 PO; -VENL75CA55 PO
[2024-12-15 09:06] LABS: BASOPHILS # (AUTO) 0.1 X10'3 (0-0.2); BASOPHILS % (AUTO) 0.7 % (0-1); EOSINOPHILS # (AUTO) 0.3 X10'3 (0-0.9); EOSINOPHILS % (AUTO) 2.8 % (0-6); HEMATOCRIT 39.4 % (35.0-45.0); HEMOGLOBIN 12.2 g/dl (12.0-16.0); LYMPHOCYTES # (AUTO) 1.8 X10'3 (1.1-4.8); LYMPHOCYTES % (AUTO) 15.3 % (21-51); MEAN CORPUSCULAR VOLUME 90.2 FL (78-98); MEAN PLATELET VOLUME 9.1 FL (7.4-10.4); MONOCYTES # (AUTO) 0.5 X10'3 (0-0.9); MONOCYTES % (AUTO) 4.7 % (2-12); NEUTROPHILS # (AUTO) 8.8 X10'3 (1.8-7.7); NEUTROPHILS % (AUTO) 76.5 % (42-75); PLATELET COUNT 332 X10'3 (140-440); RED BLOOD COUNT 4.36 X10'6 (4.20-5.60); RED CELL DISTRIBUTION WIDTH 16.4 % (11.5-14.5); WHITE BLOOD COUNT 11.5 X10'3 (4.5-11.0)
--- NOTE | 2024-12-15 09:08 | Physician Documentation ---
History of Present Illness ~ Chief Complaint: Suicidal Ideation Stated Complaint: LORELEI HOOVER Time Seen by MD: 08:50 OK to notify your PCP?: Yes [facility] Source: patient Mode of Arrival: POV Exam Limitations: no limitations HPI Chief Complaint: Suicidal thoughts Caveat: None Independent Historians: History of Present Illness: Patient is a 44-year-old woman with depression that has been longstanding and recurrent treatment resistant depression. Patient started having suicidal thoughts two days ago. She has a plan of overdosing on her pills. However she has never followed through or tried committing suicide because she is �scared�. Patient denies any alcohol or drug use. 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 Review of systems: All systems were reviewed and are negative except for what is indicated in the history of present illness. Past Medical History: Impression Past Surgical History: Noncontributory Social History: No tobacco use, no alcohol use, no drug use Medications: Reviewed as documented Nursing Notes Allergies: Reviewed as documented in Nursing Notes Medication Reconciliation Allergies: Coded Allergies: No Known Allergies (Unverified , 07/17/24) Scheduled Atogepant (Qulipta), 1 TAB PO HS, (Reported) Atorvastatin Calcium (Atorvastatin Calcium), 1 TAB PO DAILY, (Reported) Buspirone HCl (Buspirone HCl), 1 TAB PO TID, (Reported) Cetirizine HCl (Cetirizine HCl), 1 TAB PO HS, (Reported) Cholecalciferol (Vitamin D3) (Vitamin D3), 1 TAB PO DAILY, (Reported) Duloxetine HCl (Duloxetine HCl), 2 TAB PO DAILY, (Reported) Eszopiclone (Eszopiclone), 1 TAB PO HS, (Reported) Folic Acid* (Folic Acid*), 1 TAB PO DAILY, (Reported) Lamotrigine (Lamotrigine), 1 TAB PO BID, (Reported) Levothyroxine Sodium (Levothyroxine Sodium), 1 TAB PO DAILY, (Reported) [place] Carbonate ([place] Carbonate), 3 CAP PO HS, (Reported) Modafinil (Modafinil), 2 TAB PO DAILY, (Reported) Omeprazole (Prilosec), 1 CAP PO DAILY, (Reported) Paliperidone (Paliperidone ER), 1 TAB PO HS, (Reported) Primidone (Mysoline), 2.5 TAB PO HS, (Reported) Propranolol Hcl (Propranolol Hcl), 1 TAB PO DAILY, (Reported) Quetiapine Fumarate (Quetiapine Fumarate), 1 TAB PO HS, (Reported) Topiramate (Topamax), 1 TAB PO HS, (Reported) Topiramate (Topiramate), 1 TAB PO BID, (Reported) Scheduled PRN Rimegepant Sulfate (Nurtec Odt), 1 TAB PO DAILY PRN for headache, (Reported) Temazepam (Temazepam), 1 CAP PO HS PRN for sleep, (Reported) Miscellaneous Medications Semaglutide (Ozempic), (Reported) Discontinued Medications Duloxetine HCl (Duloxetine HCl), 120 MG PO DAILY Discontinued Reason: patient no longer taking Propranolol HCl (Propranolol HCl), 1 CAP PO DAILY, (Reported) Discontinued Reason: patient no longer taking Quetiapine Fumarate (Quetiapine Fumarate), 200 MG PO HS Discontinued Reason: ADR (Adverse Drug Rxn) Semaglutide (Ozempic), 1 MG SQ Q7D, (Reported) Discontinued Reason: patient no longer taking Past Medical History Past Medical History: Migraine, Seizures, Depression Past Surgical History: cholecystectomy, Alcohol Use: Rarely Drug Use: none, methamphetamine Lives with: Spouse Lives In: Homeless Review of Systems All Other Systems at this time: Reviewed and Negative ROS Patient denies any other acute symptoms other than above. All other systems are negative Physical Exam Vital Signs: Temperature: 98.1, Source: Oral, Heart Rate: 87, Respiratory Rate: 16, BP: 140/77, Pulse Oximetry: 97, Weight: 131.600 Oxygen Flow Rate: 0 Pulse Oximetry Reflects: adequate oxygenation Physical Exam General Appearance: MILD DISTRESS HEENT: Normal OP, moist oral mucosa, PERRL, EOMI Neck: supple, normal ROM, trachea midline Pulmonary: No respiratory distress, CTA, BS equal Cardiac: RRR, no murmur, rub or gallop, GI: nondistended, soft, nontender, normal bowel sounds, no guarding, no rebound Extremities: normal ROM, no swelling, non-tender Skin: intact, dry, warm, no rashes Neuro: AAOx3, speech is clear, no focal motor weakness Psych: TEARFUL, good eye contact, no apparent hallucination, normal speech Progress Results/Orders Results/Orders Orders - INES ARENAS MD Med Rec (12/15/24 08:50) 1799.11 (12/15/24 08:50) Close Observation Level (12/15/24 08:50) Covid19 Binax Poc Result Entry (12/15/24 08:50) Regular Diet (12/15/24 Lunch) Store Meds In Pharmacy (Store Meds In Ph (12/15/24 12:25) Completed Orders - INES ARENAS MD Cbc/Diff (12/15/24 08:50) Hcg, Ur Ql (12/15/24 08:50) Drug Screen, Urine (12/15/24 08:50) Ethanol (12/15/24 08:50) TSH (12/15/24 08:50) BMP (12/15/24 08:50) Ua With Microscopic (12/15/24 09:55) Acetaminophen (12/15/24 08:58) Vital Signs 12/15/24 12/15/24 08:37 11:02 Temp 98.1 Pulse 87 Resp 16 19 B/P (MAP) 140/77 Pulse Ox 97 O2 Flow Rate 0 Laboratory Tests Test 12/15/24 08:58 12/15/24 09:55 White Blood Count 11.5 H Red Blood Count 4.36 Hemoglobin 12.2 Hematocrit 39.4 Mean Corpuscular Volume 90.2 Mean Corpuscular Hemoglobin 28.0 Mean Corpuscular Hemoglobin Concent 31.0 L Red Cell Distribution Width 16.4 H Platelet Count 332 Mean Platelet Volume 9.1 Neutrophils (%) (Auto) 76.5 H Lymphocytes (%) (Auto) 15.3 L Monocytes (%) (Auto) 4.7 Eosinophils (%) (Auto) 2.8 Basophils (%) (Auto) 0.7 Neutrophils # (Auto) 8.8 H Lymphocytes # (Auto) 1.8 Monocytes # (Auto) 0.5 Eosinophils # (Auto) 0.3 Basophils # (Auto) 0.1 CBC Comment Sodium Level 141 Potassium Level 3.8 Chloride Level 107 Carbon Dioxide Level 21.1 L Anion Gap 13 Blood Urea Nitrogen 11 Creatinine 1.15 H Estimated GFR/1.73 m2 51 BUN/Creatinine Ratio 9.6 L Glucose Level 146 H Calcium Level 9.2 Albumin 2.9 L Thyroid Stimulating Hormone (TSH) 9.10 H Chemistry Comments Acetaminophen Level < 2.0 L Ethyl Alcohol Level < 10 Urine Specimen Description Cln catch midstream Urine Color Yellow Urine Clarity Slightly cloudy Urine pH 6.0 Urine Specific [place] <=1.005 Urine Protein Negative Urine Glucose (UA) Negative Urine Ketones Negative Urine Occult Blood Large H Urine Nitrite Negative Urine Bilirubin Negative Urine Urobilinogen 0.2 Urine Leukocyte Esterase Negative Urine RBC 20-50 Urine WBC 0-4 Urine Squamous Epithelial Cells Many Urine Bacteria Few Urine Mucus Moderate Volume Urine Centrifuged 10 ml Urine HCG, Qualitative Negative Urine Comment Urine Opiates Screen Negative Urine Methadone Screen Negative Urine Fentanyl Screen Negative Urine Barbiturates Screen Negative Urine Phencyclidine Screen Negative Urine Amphetamines Screen Negative Urine Benzodiazepines Screen Negative Urine Cocaine Screen Negative Urine Cannabinoids Screen Negative Drug Screen Comment Medical Decision Making Findings Differential diagnosis includes but is not limited to: Depression, anxiety, treatment resistant depression, suicidal ideations, substance abuse Laboratory data independent interpretation: CBC: CMP: Toxicology: Serology: Urinalysis: Emergency department course/medical decision-making: PATIENT PRESENTS WITH SEVERE TREATMENT RESISTANT DEPRESSION AND SUICIDAL IDEATIONS. PATIENT WAS MEDICALLY CLEARED AND STABLE FOR PSYCHIATRIC EVALUATION. PATIENT HAS BEEN PLACED ON A 1799. Discussed with our social worker clinical Jen. She recommends placing her on a hold and will be admitted upstairs. Consultation/communications: Departure Time of Disposition: 09:13 [facility]: [facility] Impression: Primary Impression: Suicidal ideation Additional Impression: Treatment-resistant depression Condition: Fair Referrals: NO PRIMARY CARE PROVIDER (PCP) Education Educated: Patient, Family Educated regarding: diagnosis, treatment Signature Scribe Signature: NO SCRIBE Attestation: NO SCRIBE INES ARENAS MD December 15, 2024 09:08
[2024-12-15 09:27] LABS: ALBUMIN 2.9 G/DL (3.4-5.0); ANION GAP 13 (8-16); BLOOD UREA NITROGEN 11 MG/DL (7-18); BUN/CREATININE RATIO 9.6 (10.0-20.0); CALCIUM 9.2 MG/DL (8.5-10.1); CHLORIDE 107 MMOL/L (99-107); CREATININE 1.15 MG/DL (0.40-0.90); ETHANOL < 10 MG/DL (<10); GLUCOSE 146 MG/DL (70-104); POTASSIUM 3.8 MMOL/L (3.5-5.1); SODIUM 141 MMOL/L (135-145); TOTAL CARBON DIOXIDE 21.1 MMOL/L (24-32); eCRCL 61 ML/MIN; eGFR 51 ML/MIN
[2024-12-15 10:06] LABS: BILIRUBIN,URINE NEGATIVE (Neg); CLARITY,URINE SLIGHTLY CLOUDY (Clear); COLOR,URINE YELLOW (Yellow); GLUCOSE, URINE NEGATIVE (Neg); KETONES,URINE NEGATIVE (Neg); LEUKOCYTE ESTERASE ,URINE NEGATIVE (Neg); NITRITES, URINE NEGATIVE (Neg); OCCULT BLOOD,URINE LARGE (Neg); PROTEIN,URINE NEGATIVE (Neg); UROBILINOGEN,URINE 0.2 E.U/dL (0.2-1.0)
[2024-12-15 10:08] LABS: UA COLLECTION TYPE CLN CATCH MIDSTREAM; URINE HCG NEGATIVE (NEG)
[2024-12-15 10:19] LABS: URINE AMPHETAMINE SCREEN NEGATIVE (Neg); URINE BARBITUATE SCREEN NEGATIVE (Neg); URINE BENZODIAZEPINES SCREEN NEGATIVE (Neg); URINE CANNABINOID SCREEN NEGATIVE (Neg); URINE COCAINE SCREEN NEGATIVE (Neg); URINE METHADONE SCREEN NEGATIVE (Neg); URINE OPIATE SCREEN NEGATIVE (Neg); URINE PHENCYCLIDINE SCREEN NEGATIVE (Neg)
[2024-12-15 10:24] LABS: BACTERIA,URINE FEW /HPF (Neg); RBC,URINE 20-50 /HPF (0-2); SQUAMOUS EPITHELIAL CELL,UR MANY /LPF (FEW); WBC,URINE 0-4 /HPF (0-4)
[2024-12-15 10:25] LABS: MUCUS STRANDS MODERATE /LPF (Neg)
[2024-12-15] MEDS ORDERED: INDLA80C PO (11:12)
[2024-12-15] MEDS ORDERED: BUSP15TA7 PO (11:12)
[2024-12-15] MEDS ORDERED: SEMA2PEN (11:12)
[2024-12-15] MEDS ORDERED: TOPI-95 PO (11:12)
[2024-12-15] MEDS ORDERED: TEMA15CA PO (11:12)
[2024-12-15] MEDS ORDERED: MODA100T31 PO (11:12)
[2024-12-15] MEDS ORDERED: DULO60CA65 PO (11:12)
[2024-12-15] MEDS ORDERED: RIME75TA PO (11:12)
[2024-12-15] MEDS ORDERED: QUET300T20 PO (11:12)
[2024-12-15 11:32] LABS: ACETAMINOPHEN < 2.0 UG/ML (10-30)
[2024-12-15] MEDS: lamoTRIgine 100mg tablet PO SCH (20:53)
[2024-12-15] MEDS: topiramate 25mg tablet PO SCH (20:54)
[2024-12-15] MEDS: busPIRone 15mg tablet PO SCH (20:54)
[2024-12-15] MEDS: lithium carbonate 150mg capsule PO SCH (20:55)
[2024-12-15] MEDS: primidone 250mg tablet PO SCH (20:55)
[2024-12-15] MEDS: PALIPERIDONE 3 MG TAB.ER.24 PO SCH (20:55)
[2024-12-15] MEDS: quetiapine 100mg tablet PO SCH (20:56)
[2024-12-15] MEDS: cetirizine 10mg tablet PO SCH (20:56)
[2024-12-15] MEDS ORDERED: topiramate 25mg tablet PO SCH (21:00)
[2024-12-15] MEDS: ATOGEPANT 30 MG PO SCH (21:00)
[2024-12-15] MEDS ORDERED: non-formulary drug (Eszopiclone 1 TAB) PO SCH (21:00)
[2024-12-15] MEDS: temazepam 15mg capsule PO PRN (21:12)
[2024-12-15 21:40] VITALS: BP 109/91; PULSE 91; RESP 17; TEMP 97.7; O2SAT 99
[2024-12-15 22:00] VITALS: RESP 16; O2SAT 99
[2024-12-15] MEDS ORDERED: loperamide 2mg capsule PO PRN (22:10)
[2024-12-15] MEDS ORDERED: mag hydrox/Alum hydrox/simeth 30ml oral suspension PO PRN (22:10)
[2024-12-15] MEDS ORDERED: chlorproMAZINE 25mg tablet PO PRN (22:10)
[2024-12-15] MEDS ORDERED: traZODone 50mg tablet PO PRN (22:10)
[2024-12-15] MEDS ORDERED: diphenhydrAMINE 25mg capsule PO PRN (22:10)
[2024-12-16] MEDS: acetaminophen 325mg tablet PO PRN (03:54)
[2024-12-16 06:56] LABS: BASOPHILS % (AUTO) 0.5 % (0-1); EOSINOPHILS # (AUTO) 0.2 X10'3 (0-0.9); EOSINOPHILS % (AUTO) 2.9 % (0-6); HEMATOCRIT 37.9 % (35.0-45.0); HEMOGLOBIN 12.3 g/dl (12.0-16.0); LYMPHOCYTES # (AUTO) 1.7 X10'3 (1.1-4.8); LYMPHOCYTES % (AUTO) 20.1 % (21-51); MEAN CORPUSCULAR HEMOGLOBIN 28.7 PG (27.0-31.0); MEAN CORPUSCULAR HGB CONC 32.4 g/dL (33.0-36.5); MEAN CORPUSCULAR VOLUME 88.5 FL (78-98); MEAN PLATELET VOLUME 8.9 FL (7.4-10.4); MONOCYTES # (AUTO) 0.6 X10'3 (0-0.9); MONOCYTES % (AUTO) 6.7 % (2-12); NEUTROPHILS # (AUTO) 5.9 X10'3 (1.8-7.7); NEUTROPHILS % (AUTO) 69.8 % (42-75); PLATELET COUNT 263 X10'3 (140-440); RED BLOOD COUNT 4.28 X10'6 (4.20-5.60); RED CELL DISTRIBUTION WIDTH 15.9 % (11.5-14.5); WHITE BLOOD COUNT 8.5 X10'3 (4.5-11.0)
[2024-12-16 07:00] VITALS: RESP 16; O2SAT 100
[2024-12-16] MEDS: pantoprazole 40mg Tablet.DR PO SCH (07:13)
[2024-12-16] MEDS: levoTHYROXINE 125mcg tablet PO SCH (07:13)
[2024-12-16 07:31] LABS: ALANINE AMINOTRANSFERASE 24 U/L (12-78); ALBUMIN 2.9 G/DL (3.4-5.0); ALBUMIN/GLOBULIN RATIO 0.7 (1.1-1.5); ALKALINE PHOSPHATASE 110 IU/L (46-116); ANION GAP 11 (8-16); ASPARTATE AMINO TRANSFERASE 19 U/L (10-37); BILIRUBIN,TOTAL 0.1 MG/DL (0.1-1.0); BLOOD UREA NITROGEN 9 MG/DL (7-18); BUN/CREATININE RATIO 9.3 (10.0-20.0); CALCIUM 9.6 MG/DL (8.5-10.1); CHLORIDE 109 MMOL/L (99-107); CREATININE 0.97 MG/DL (0.40-0.90); GLUCOSE 128 MG/DL (70-104); POTASSIUM 4.2 MMOL/L (3.5-5.1); SODIUM 145 MMOL/L (135-145); TOTAL CARBON DIOXIDE 25.2 MMOL/L (24-32); eCRCL 73 ML/MIN; eGFR 63 ML/MIN
[2024-12-16 08:00] VITALS: BP 110/73; PULSE 106; RESP 16; TEMP 97.5; O2SAT 100
[2024-12-16] MEDS: folic acid 1mg tablet PO SCH (08:00)
[2024-12-16] MEDS: cholecalciferol (vitamin D3) 1,000 unit (25mcg) tablet PO SCH (08:00)
[2024-12-16] MEDS: atorvastatin 20mg tablet PO SCH (08:00)
[2024-12-16] MEDS: modafinil 100mg tablet PO SCH (08:00)
[2024-12-16] MEDS: duloxetine 30mg CAPSULE.DR PO SCH (08:00)
[2024-12-16] MEDS: PROPRANOLOL 80 MG PO SCH (08:32)
[2024-12-16] MEDS: RIMEGEPANT SULFATE PO PRN (08:32)
[2024-12-16] MEDS: hydrOXYzine 25 MG tablet PO PRN (08:33)
[2024-12-16] MEDS: magnesium hydroxide 30ml (MOM) UD suspension PO PRN (08:33)
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
--- NOTE | 2024-12-16 15:08 | HISTORY AND PHYSICAL ---
History & Physical Providers to CC ~ History of Present Illness Reason for Admit\Complaint: Suicidal ideation on a 5150 hold History of Present Illness This is the hospitalist history and physical exam on patients hospitalized at [facility]. The patient presented to the ED due to being depressed and exhibiting suicidal ideation. The patient has stated for two days that she was planning to overdose on her medications however never acted on these thoughts. At current time the patient has no acute medical complaints is jovial and makes good eye contact has a alert and oriented. Allergies: Coded Allergies: No Known Allergies (Unverified , 07/17/24) Home Medications Home Medications Active Reported Nurtec Odt (Rimegepant Sulfate) 75 Mg Tab.rapdis 1 Tab PO DAILY PRN Propranolol Hcl 80 Mg Cap.sa.24h 1 Tab PO DAILY Ozempic (Semaglutide) 2 Mg/0.75 Ml (8 Mg/3 Ml) Pen.injctr Buspirone HCl 15 Mg Tablet 1 Tab PO TID Modafinil 100 Mg Tablet 2 Tab PO DAILY Duloxetine HCl 60 Mg Capsule.dr 2 Tab PO DAILY Topiramate 50 Mg Tablet 1 Tab PO BID Temazepam 15 Mg Capsule 1 Cap PO HS PRN Quetiapine Fumarate 300 Mg Tablet 1 Tab PO HS Paliperidone ER (Paliperidone) 3 Mg Tab.er.24 1 Tab PO HS Topamax (Topiramate) 25 Mg Tablet 1 Tab PO HS 30 Days Mysoline (Primidone) 50 Mg Tablet 2.5 Tab PO HS Qulipta (Atogepant) 30 Mg Tablet 1 Tab PO HS Prilosec (Omeprazole) 40 Mg Capsule 1 Cap PO DAILY Atorvastatin Calcium 20 Mg Tablet 1 Tab PO DAILY Vitamin D3 (Cholecalciferol (Vitamin D3)) 50 Mcg (2000 Unit) Tablet 1 Tab PO DAILY Levothyroxine Sodium 125 Mcg Tablet 1 Tab PO DAILY Cetirizine HCl 10 Mg Tablet 1 Tab PO HS Folic Acid* (Folic Acid) Y Tab 1 Tab PO DAILY Lamotrigine 200 Mg Tablet 1 Tab PO BID [place] Carbonate 300 Mg Capsule 3 Cap PO HS Eszopiclone 1 Mg Tablet 1 Tab PO HS Past Medical History Past Medical History Peripheral neuropathy, tremors-unknown type, depression, bipolar disorder, borderline personality disorder, history of migraine, back pain, hypertension, hypothyroidism Past Surgical History Surgical History Comment Cholecystectomy, Family History Family History: FH: bipolar disorder FATHER FH: breast cancer MOTHER Past Social History Social History Comment Patient denes history of smoking/ drinking alcohol nor any illicit drug use. The patient has a years clean and sober as of December 08, 2024 and previously used heroin and methamphetamines. ROS ROS Except for positives in the HPI the rest of the 14 point review systems is negative Exam Vitals: Vital Signs Date Time Temp Pulse Resp B/P (MAP) Pulse Ox O2 Delivery O2 Flow Rate FiO2 12/16/24 08:00 97.5 106 16 110/73 (85) 100 Room Air 12/15/24 08:37 0 General: Gen. No acute distress alert and oriented Lungs clear to ascultation bilaterally, no wheezes rales or rhonchi appreciated Heart normal sinus rhythm no murmurs rubs or clicks noted Abdomen soft nontender bowel sounds are normoactive Lower extremities no clubbing cyanosis, nor edema appreciated bilaterally Diagnostic Data Last Recorded Lab Results: 12/16/24 0646 12/16/24 0646 Problems: (1) Suicidal ideation Status: Resolved Additional Plan # suicidal ideation on a 5150 hold Followed by Psychiatry # bipolar disorder # borderline personality disorder Managed by Psychiatry # hypertension Blood pressure is under acceptable control not on any blood pressure medication currently continue to monitor # essential tremors Continue primidone The patient has no acute complaints or concerns and none were voiced by nursing staff The hospitalist service will continue to follow the patient. Date of Service: December 16, 2024 Billing Provider: JUDIT WILBURN DO Common Visit Codes: [id number] INP/OBS CARE (LOW) JUDIT WILBURN DO December 16, 2024 15:08
[2024-12-16 19:00] VITALS: RESP 16; O2SAT 95
[2024-12-16 20:00] VITALS: BP 106/63; PULSE 73; RESP 16; TEMP 97.8; O2SAT 95
[2024-12-16] MEDS: busPIRone 5mg tablet PO SCH (20:29)
[2024-12-17 07:00] VITALS: RESP 16; O2SAT 96
[2024-12-17 08:00] VITALS: BP 101/64; PULSE 80; RESP 16; TEMP 98.9; O2SAT 96
--- NOTE | 2024-12-17 16:08 | PROGRESS NOTE ---
Progress Note Dictate Providers to CC ~ Central Line/PICC still needed: N\A Antibiotic Ordered?: No Objective Vitals Vital Signs Date Time Temp Pulse Resp B/P (MAP) Pulse Ox O2 Delivery O2 Flow Rate FiO2 12/17/24 08:00 98.9 80 16 101/64 (76) 96 Room Air 12/17/24 07:00 0.0 Lab Results: 12/16/24 0646 12/16/24 0646 Problem\Assessment\Plan Problems/Diagnosis: (1) Severe manic bipolar 1 disorder with psychotic behavior Psychiatrist's Progress Note Date of Service: December 17, 2024 Notes Ms Viktoria Galaviz is a 44-year-old woman with depression that has been longstanding and recurrent treatment resistant depression. Patient started having suicidal thoughts two days ago. She has a plan of overdosing on her pills. However she has never followed through or tried committing suicide because she is �scared�. Patient denies any alcohol or drug use. 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 Patient is average height obese. She has long disheveled brown blonde hair wore in pony tail. Green scrubs. Feeling weak right now. She says being in bed a lot. Tremor disorder that makes her weak as well. Thinking wait to shower. Still feeling depressed. Still staying in bed. Isolating. Took all day to call boyfriend and wanted to cancel visitation. Feels like too much energy. Still feeling like things are pointless. More passive thoughts. Not SI. Feels like everything is a big ordeal. 'OMG do I have to get out of bed to pee?' Before this she was manic and couldn't sleep for two weeks. Sleep- tossing and turning. Just laying there.Fall asleep but doesn't stay long. No AH/VH currently. No Paranoid thinking currently. Anxiety is okay with decreased buspar, but had to ask for something earlier today. Mental Status Patient's appearance is depressed Behavior is described as anxious Psychomotor behaviors are unremarkable. Speech is appropriate. Patient's affect : constricted Mood :I am not doing good Sensorium is clear consciousness. Patient's intellect is average. Attitude is cooperative. Attention is maintained. Reasoning is fair. Impulse control is fair. Judgment is fair. Insight is fair. Thought processes are circumstantial, goal directed Thought content : No significant preoccupation, no auditory visual or tactile hallucinations, no paranoid ideations The patient does express suicidal ideation. 'I just want to go to sleep and not wake up.' The patient does not express homicidal ideation. Results Of any Diagn. Testing Reviewed Labs. Treatment Her TSH was 9.10. She had missed only a couple days of meds. Looks like she may need the Synthroid adjusted. We will adjust her seroquel a little to help with good solid sleep at night. Cymbalta 120mg daily Buspar 15mg TID Restoril 15mg hs PRN Insomnia Trazodone 50mg hs prn Insomnia Lamictal 200mg BID [place] 300mg 3 po hs. Invega 3mg daily Seroquel 300mg hs Atarax 50mg Q6hr prn anxiety Thorazine PRN Provigil 200mg qam Monitoring by Staff, Milieu, Group, and Individual counseling as needed -- According to the [place] Suicide Assessment the above named patient is on Q 15 MINUTE CHECKS. DTS-- The patient does not have a good safety plan for discharge at this time. We are still titrating medications to an effective dose while maintaining a therapeutic environment to prevent decompensation and readmission. REVIEW OF Clinical notes [X ] RN notes [X] PCT documentation [X] SW notes [X] Labs [ X] Medications [X] Care trends/care activity [X] Vitals [X] DISCUSSION WITH medical technician assistant [X] DISCHARGE UNSURE AT THIS TIME. DISCHARGE HOME ONCE STABLE. CODING VISIT-PSYCHIATRY Date of Service: December 17, 2024 Billing Provider: ADEEL BRAY Psych Common Visit Codes: [id number] INP/OBS CARE(Mod) ADEEL BRAY December 17, 2024 16:08
[2024-12-17 19:00] VITALS: RESP 16; O2SAT 94
[2024-12-17 20:00] VITALS: BP 111/59; PULSE 87; RESP 16; TEMP 97.7; O2SAT 94
[2024-12-17] MEDS: QUEtiapine 25mg tablet PO SCH (20:42)
[2024-12-17] MEDS: quetiapine 100mg tablet PO SCH (20:42)
[2024-12-18 07:00] VITALS: RESP 17; O2SAT 94
[2024-12-18 08:00] VITALS: BP 113/74; PULSE 101; RESP 17; TEMP 97.8; O2SAT 94
--- NOTE | 2024-12-18 11:58 | PROGRESS NOTE ---
Progress Note Dictate Providers to CC ~ Central Line/PICC still needed: N\\A Antibiotic Ordered?: No MRSA Education MRSA Education Provided to pt: No Objective Vitals Vital Signs Date Time Temp Pulse Resp B/P (MAP) Pulse Ox O2 Delivery O2 Flow Rate FiO2 12/18/24 08:00 97.8 101 17 113/74 (87) 94 Room Air 12/17/24 07:00 0.0 Lab Results: 12/16/24 0646 12/16/24 0646 Psychiatrist's Progress Note Date of Service: December 18, 2024 Notes CHARTREVIEW Ms Viktoria Galaviz is a 44-year-old woman with depression that has been longstanding and recurrent treatment resistant depression. Patient started having suicidal thoughts two days ago. She has a plan of overdosing on her pills. However she has never followed through or tried committing suicide because she is �scared�. Patient denies any alcohol or drug use. 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 ASSESSMENT The patient was interviewed in observation room. The patient was actively sitting edge of bed engaging with her roommate. The patient endorses "Alright." "I took a shower and feel refreshed." "My sleep are not doing it." The patient endorses she takes her Restoril scheduled. The patietn endorses no worsening mental health symptoms. The patient endorses adequate food intake. Denies SI. Denies HI. Denies AVH. The patient is stable no acute distress noted. The patient is cooperative, calm, and engaged during session. The patient was laughing and smiling during session. Per staff report patient is medication compliant. Report no abnormal behaviors. Per staff report patient has been attending group/activities. The patient has shown moderate improvement since admission. Will continue daily assessment and adjusting treatment as needed. Closely monitor behavior and response to medication during hospitalization. Appearnace: Other (AVERAGE HEIGHT OBESE FEMALE. BROWN BLONDE HAIR WRAPPED IN A TOWEL. WEARING GREEN SCRUBS) Speech: Other (CIRCUMSTANTIAL) Eye Contact: Other (INTERMITTENT) Motor Activity: Normal Affect: Full Mood: Euthymic Orientation Impairment: None Memory Impairment: None Attention: Normal Hallucinations: None Other: None Suicidality: None Homicidality: None Delusions: None Behavior: Cooperative Insight: Fair Judgment: Fair Treatment CYMBALTA 120 MG P.O. DAILY BUSPAR 15 MG PO TID Change RESTORIL 15 MG P.O. Q.H.S. TRAZODONE 50 MG P.O. Q.H.S. PRN INSOMNIA LAMICTAL 200 MG P.O. B.I.D. LITHIUM 900 MG P.O. Q.H.S. INVEGA 3 MG P.O. DAILY SEROQUEL 300 MG P.O. Q.H.S. HYDROXYZINE 50 MG P.O. Q.6 PRN ANXIETY 50 MG P.O. Q.6 PRN PROVIGIL 200 MG P.O. Q.A.M. Monitoring by Staff, Milieu, Group, and Individual counseling as needed -- According to the [place] Suicide Assessment the above named patient is on Q 15 MINUTE CHECKS. VOLUNTARY REVIEW OF Clinical notes [X ] RN notes [X] PCT documentation [X] SW notes [X] Labs [ X] Medications [X] Care trends/care activity [X] Vitals [X] DISCUSSION WITH quality improvement engineer [X] Discharge UNSURE AT THIS TIME. DISCHARGE HOME ONCE STABLE. CODING VISIT-PSYCHIATRY Date of Service: December 18, 2024 Billing Provider: MELLISSA SILVER APRN Psych Common Visit Codes: [id number] INP/OBS CARE(Mod) MELLISSA SILVER APRN December 18, 2024 11:58
--- NOTE | 2024-12-18 13:58 | PROGRESS NOTE ---
Daily Progress Note Providers to CC ~ NO NEW COMPLAINT TODAY, RESTING COMFORTABLY IN THE BED Central Line/PICC still needed: No Mayen-Non Protocol Mayen Indications Met/Not Met: F/C Indications Not Met Antibiotic Timeout Antibiotic Ordered?: No MRSA Education MRSA Education Provided to pt: No Subjective As above Objective Vital Signs Date Time Temp Pulse Resp B/P (MAP) Pulse Ox O2 Delivery O2 Flow Rate FiO2 12/18/24 08:00 97.8 101 17 113/74 (87) 94 Room Air 12/17/24 07:00 0.0 Vital signs, stable ,afebrile. Pulse Oximetry reflects adequate oxygenation. General: well developed, well nourished. Awake , alert, and oriented x4, resting comfortably in the bed, in no acute distress . Skin: Warm, dry, no pallor, no rash or petechiae. HEENT: Atraumatic, normocephalic, EOMI, anicteric sclera B; pink conjunctiva; PERRLA, normal oropharynx, moist oral and nasal mucosa. Tympanic membrane , nose , throat clear. Neck: Trachea midline. Supple, full range of motion, no JVD, bruit , hepatojugular reflex , lymphadenopathy or masses, or other lesions Cardiac: Regular rhythm, regular rate no murmurs, rubs, or gallops. Normal S1 and S2, no S3 noticed. PMI is normal. Respiratory: Equal breath sounds bilaterally, no tachypnea; lungs clear to auscultation bilaterally, no wheezing ,rub or rales, or crackles. Chest wall is symmetric and without deformity. No signs of trauma. Chest wall is nontender. No signs of respiratory distress. Resonance is normal upon percussion bilaterally. Gastrointestinal: Abdomen symmetric, non-distended, soft, non-tender, normal bowel sounds x4 quadrant, normoactive, no hepatosplenomegaly , no masses , no bruit, no flank pain bilaterally. No voluntary guarding, rebound, or rigidity. No tenderness to percussion. No pulsatile masses. Equal femoral pulses. No Brian's sign or McBurney point tenderness. Back; no CVA tenderness bilaterally, no deformities. Neck and back are without deformity as well. No tenderness noted on palpation of the spinous processes. Spinous processes are midline. Cervical, thoracic, and lumbar paraspinal muscles are not tender and are without spasm. : normal external genitalia, without lesions, swelling, masses or tenderness. Musculoskeletal: Extremities, normal range of motion, non-tender, muscle strength 5/5 x 4. Negative Homans signs bilaterally on lower extremity. Distal pulses full symmetrical, no clubbing, cyanosis , edema. Neurological: Speech is clear, alert, and oriented x 4. No motor or sensory deficit, deep tendon reflexes normal, cerebellar intact. Cranial nerves II-XII intact. Psych: Alert and or appropriate, normal affect. Vascular: Good distal pulses, which are equal x4; capillary refill less than 2 seconds. Lymphatic, no lymphadenopathy. Result Diagram: 12/16/2464512/16/24645 Problem\Assessment\Plan Problems/Diagnosis: (1) Suicidal ideation Problems: (1) Suicidal ideation Status: Resolved Additional Plan # suicidal ideation on a 5150 hold Followed by Psychiatry # bipolar disorder # borderline personality disorder Managed by Psychiatry # hypertension Blood pressure is under acceptable control not on any blood pressure medication currently continue to monitor # essential tremors Continue primidone The patient has no acute complaints or concerns and none were voiced by nursing staff The hospitalist service will continue to follow the patient. Sepsis Screening Reassessment Date: December 18, 2024 Date of Service: December 18, 2024 Billing Provider: AYAKA GREEN MD Common Visit Codes: [id number] INP/OBS CARE(LOW) AYAKA GREEN MD December 18, 2024 13:58
--- NOTE | 2024-12-18 18:10 | PROGRESS NOTE ---
Daily Progress Note Providers to CC ~ no new complaint today resting comfortably in the bed Central Line/PICC still needed: No Mayen-Non Protocol Mayen Indications Met/Not Met: F/C Indications Not Met Antibiotic Timeout Antibiotic Ordered?: No MRSA Education MRSA Education Provided to pt: No Subjective As above Objective Vital Signs Date Time Temp Pulse Resp B/P (MAP) Pulse Ox O2 Delivery O2 Flow Rate FiO2 12/18/24 08:00 97.8 101 17 113/74 (87) 94 Room Air 12/17/24 07:00 0.0 Vital signs, stable ,afebrile. Pulse Oximetry reflects adequate oxygenation. BMI is 45, weight 132 kg General: well developed, well nourished. Awake , alert, and oriented x4, resting comfortably in the bed, in no acute distress . Skin: Warm, dry, no pallor, no rash or petechiae. HEENT: Atraumatic, normocephalic, EOMI, anicteric sclera B; pink conjunctiva; PERRLA, normal oropharynx, moist oral and nasal mucosa. Tympanic membrane , nose , throat clear. Neck: Trachea midline. Supple, full range of motion, no JVD, bruit , hepatojugular reflex , lymphadenopathy or masses, or other lesions Cardiac: Regular rhythm, regular rate no murmurs, rubs, or gallops. Normal S1 and S2, no S3 noticed. PMI is normal. Respiratory: Equal breath sounds bilaterally, no tachypnea; lungs clear to auscultation bilaterally, no wheezing ,rub or rales, or crackles. Chest wall is symmetric and without deformity. No signs of trauma. Chest wall is nontender. No signs of respiratory distress. Resonance is normal upon percussion bilaterally. Gastrointestinal: Abdomen symmetric, non-distended, soft, non-tender, normal bowel sounds x4 quadrant, normoactive, no hepatosplenomegaly , no masses , no bruit, no flank pain bilaterally. No voluntary guarding, rebound, or rigidity. No tenderness to percussion. No pulsatile masses. Equal femoral pulses. No Brian's sign or McBurney point tenderness. Back; no CVA tenderness bilaterally, no deformities. Neck and back are without deformity as well. No tenderness noted on palpation of the spinous processes. Spinous processes are midline. Cervical, thoracic, and lumbar paraspinal muscles are not tender and are without spasm. Musculoskeletal: Extremities, normal range of motion, non-tender, muscle strength 5/5 x 4. Negative Homans signs bilaterally on lower extremity. Distal pulses full symmetrical, no clubbing, cyanosis , edema. Neurological: Speech is clear, alert, and oriented x 4. No motor or sensory deficit, deep tendon reflexes normal, cerebellar intact. Cranial nerves II-XII intact. Psych: Alert and or appropriate, normal affect. Vascular: Good distal pulses, which are equal x4; capillary refill less than 2 seconds. Lymphatic, no lymphadenopathy. Result Diagram: 12/16/2464512/16/24645 Problem\Assessment\Plan Problems/Diagnosis: (1) Suicidal ideation Assessment/plan (1) Suicidal ideation Status: Resolved Additional Plan # suicidal ideation on a 5150 hold Followed by Psychiatry # bipolar disorder # borderline personality disorder Managed by Psychiatry # hypertension Blood pressure is under acceptable control not on any blood pressure medication currently continue to monitor # essential tremors Continue primidone Elevated TSH, T3-T4 pending Abnormal UA, may need to be repeated in one week Morbid obesity, Nutrition consult BMI 45 The hospitalist service will continue to follow the patient. Sepsis Screening Reassessment Date: December 18, 2024 Date of Service: December 18, 2024 Billing Provider: AYAKA GREEN MD Common Visit Codes: [id number] INP/OBS CARE(MOD) AYAKA GREEN MD December 18, 2024 18:10
[2024-12-18 19:00] VITALS: RESP 16; O2SAT 98
[2024-12-18 20:00] VITALS: BP 104/60; PULSE 89; RESP 16; TEMP 98.3; O2SAT 98
[2024-12-18] MEDS: nystatin 15 GM powder TP SCH (20:44)
[2024-12-18] MEDS: temazepam 15mg capsule PO SCH (20:45)
[2024-12-19 07:00] VITALS: BP 128/72; PULSE 86; RESP 20; TEMP 96.9
[2024-12-19 07:30] VITALS: RESP 20; O2SAT 93
[2024-12-19] MEDS: acetaminophen 325mg tablet PO PRN (09:27)
--- NOTE | 2024-12-19 13:53 | PROGRESS NOTE ---
Progress Note Dictate Providers to CC ~ Central Line/PICC still needed: N\\A Antibiotic Ordered?: No MRSA Education MRSA Education Provided to pt: No Objective Vitals Vital Signs Date Time Temp Pulse Resp B/P (MAP) Pulse Ox O2 Delivery O2 Flow Rate FiO2 12/19/24 07:30 20 93 Room Air 12/19/24 07:00 96.9 86 128/72 (90) 12/17/24 07:00 0.0 Lab Results: 12/16/24 0646 12/16/24 0646 Psychiatrist's Progress Note Date of Service: December 19, 2024 Notes CHARTREVIEW Ms Viktoria Galaviz is a 44-year-old woman with depression that has been longstanding and recurrent treatment resistant depression. Patient started having suicidal thoughts two days ago. She has a plan of overdosing on her pills. However she has never followed through or tried committing suicide because she is �scared�. Patient denies any alcohol or drug use. 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 ASSESSMENT The patient was interviewed in observation room. The patient was actively resting in bed with eyes closed. The patient endorses "Alright." The patient endorses no worsening mental health symptoms. The patient endorses adequate sleep and food intake. Denies SI. Denies HI. Denies AVH. The patient is stable no acute distress noted. The patient is cooperative, calm, and engaged during session. Per staff report patient is medication compliant. Report no abnormal behaviors. Per staff report patient has been attending group/activities. The patient has shown moderate improvement since admission. Will continue daily assessment and adjusting treatment as needed. Closely monitor behavior and response to medication during hospitalization. Appearnace: Other (AVERAGE HEIGHT OBESE FEMALE. BROWN BLONDE HAIR WRAPPED IN A TOWEL. WEARING GREEN SCRUBS) Speech: Other (CIRCUMSTANTIAL) Eye Contact: Other (INTERMITTENT) Motor Activity: Normal Affect: Full Mood: Euthymic Orientation Impairment: None Memory Impairment: None Attention: Normal Hallucinations: None Other: None Suicidality: None Homicidality: None Delusions: None Behavior: Cooperative Insight: Fair Judgment: Fair, Poor Treatment CYMBALTA 120 MG P.O. DAILY BUSPAR 15 MG PO TID Change RESTORIL 15 MG P.O. Q.H.S. TRAZODONE 50 MG P.O. Q.H.S. PRN INSOMNIA LAMICTAL 200 MG P.O. B.I.D. LITHIUM 900 MG P.O. Q.H.S. INVEGA 3 MG P.O. DAILY SEROQUEL 300 MG P.O. Q.H.S. HYDROXYZINE 50 MG P.O. Q.6 PRN ANXIETY 50 MG P.O. Q.6 PRN PROVIGIL 200 MG P.O. Q.A.M. Monitoring by Staff, Milieu, Group, and Individual counseling as needed -- According to the [place] Suicide Assessment the above named patient is on Q 15 MINUTE CHECKS. VOLUNTARY REVIEW OF Clinical notes [X ] RN notes [X] PCT documentation [X] SW notes [X] Labs [ X] Medications [X] Care trends/care activity [X] Vitals [X] DISCUSSION WITH fishery biologist [X] Discharge UNSURE AT THIS TIME. DISCHARGE HOME ONCE STABLE. CODING VISIT-PSYCHIATRY Date of Service: December 19, 2024 Billing Provider: MELLISSA SILVER APRN Psych Common Visit Codes: [id number] INP/OBS CARE(Mod) MELLISSA SILVER APRN December 19, 2024 13:53
[2024-12-19 18:37] VITALS: RESP 20; O2SAT 94
[2024-12-19 20:00] VITALS: BP 121/76; PULSE 88; RESP 16; TEMP 97.9; O2SAT 98
[2024-12-20 08:00] VITALS: BP 109/72; PULSE 78; RESP 16; TEMP 97.9; O2SAT 95
--- NOTE | 2024-12-20 10:53 | DISCHARGE SUMMARY ---
Discharge Summary Providers to CC ~ Discharge Summary Admission Diagnosis: MANIC BIPOLAR ONE DISORDER WITH PSYCHOTIC BEHAVIORAL Hospital Course DATE OF ADMISSION: DATE OF DISCHARGE: Discharge Diagnosis\\Comment: MANIC BIPOLAR ONE DISORDER WITH PSYCHOTIC BEHAVIORAL Operations\\Procedures: NONE Consultants: MEDICAL TEAM Complications: NONE Condition on DC: Stable 2 or more antipsychotic used: Yes 2/more antipsychotic addressed: Yes Does Patient smoke: No Smoking education given.: No New Medications: Buspirone Hcl (Buspirone Hcl) 5 Mg Tablet 10 MG PO TID for 14 Days, #84 TAB Continued Medications: Atogepant (Qulipta) 30 Mg Tablet 1 TAB PO HS, TAB 0 Refills Atorvastatin Calcium (Atorvastatin Calcium) 20 Mg Tablet 1 TAB PO DAILY Cetirizine HCl (Cetirizine HCl) 10 Mg Tablet 1 TAB PO HS Cholecalciferol (Vitamin D3) (Vitamin D3) 50 Mcg (2000 Unit) Tablet 1 TAB PO DAILY Duloxetine HCl (Duloxetine HCl) 60 Mg Capsule.dr 2 TAB PO DAILY for 14 Days, #30 CAP.SR (This prescription has been renewed) Eszopiclone (Eszopiclone) 1 Mg Tablet 1 TAB PO HS Folic Acid* (Folic Acid*) Y Tab 1 TAB PO DAILY Lamotrigine (Lamotrigine) 200 Mg Tablet 1 TAB PO BID for 14 Days, #30 TAB (This prescription has been renewed) Levothyroxine Sodium (Levothyroxine Sodium) 125 Mcg Tablet 1 TAB PO DAILY [place] Carbonate ([place] Carbonate) 300 Mg Capsule 3 CAP PO HS for 14 Days, #60 CAP (This prescription has been renewed) Modafinil (Modafinil) 100 Mg Tablet 2 TAB PO DAILY Omeprazole (Prilosec) 40 Mg Capsule 1 CAP PO DAILY Paliperidone (Paliperidone ER) 3 Mg Tab.er.24 1 TAB PO HS for 14 Days, #14 TAB.SR (This prescription has been renewed) Primidone (Mysoline) 50 Mg Tablet 2.5 TAB PO HS, TAB 0 Refills Propranolol Hcl (Propranolol Hcl) 80 Mg Cap.sa.24h 1 TAB PO DAILY Quetiapine Fumarate (Quetiapine Fumarate) 300 Mg Tablet 1 TAB PO HS for 14 Days, #14 TAB (This prescription has been renewed) Rimegepant Sulfate (Nurtec Odt) 75 Mg Tab.rapdis 1 TAB PO DAILY PRN for headache Semaglutide (Ozempic) 2 Mg/0.75 Ml (8 Mg/3 Ml) Pen.injctr Temazepam (Temazepam) 15 Mg Capsule 1 CAP PO HS PRN for sleep Topiramate (Topiramate) 50 Mg Tablet 1 TAB PO BID Discontinued Medications: Buspirone HCl (Buspirone HCl) 15 Mg Tablet 1 TAB PO TID Topiramate (Topamax) 25 Mg Tablet 1 TAB PO HS for 30 Days, #60 TAB 0 Refills Discharge Summary: CHART REVIEW Ms Viktoria Galaviz is a 44-year-old woman with depression that has been longstanding and recurrent treatment resistant depression. Patient started having suicidal thoughts two days ago. She has a plan of overdosing on her pills. However she has never followed through or tried committing suicide b ecause she is �scared�. Patient denies any alcohol or drug use. 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 Patient actively seen and examined on day of discharge 12/20/2024, by myself, EMILIE Kern. The patient is interviewed in observation room. The patient endorses "Good." Denies SI. Denies HI. Denies AVH. Anastacia was able to formulate a safety plan which includes going to the emergency room if symptoms return or worsen. Call [phone] for immediate assistance if necessary. During his hospital stay, Anastacia receive multidisciplinary treatment he adhered to his medication regimen and has been pleasant and cooperative. She denies any suicidal ideation (SI), homicidal ideation (HI), auditory/visual hallucination (HI). Staff has reported no behavioral issues, and the patient has been sleeping well, adequate food intake, with no mood or behavioral changes noted. The decision to discharge Anastacia was made in consensus with the treatment team, including the child welfare social worker, critical care unit manager, and propellant charge loader on duty. The patient was E-scribed a 14-day of medication. MENTAL STATUS EXAM APPEARANCE: APPROPRIATELY. DRESSED IN STREET CLOTHING. SPEECH: CIRCUMSTANCE EYE CONTACT: NORMAL AFFECT: CONGRUENT WITH MOOD MOOD: "GOOD" ORIENTATION IMPAIRMENT: NONE MEMORY IMPAIRMENT: NONE ATTENTION: NORMAL HALLUCINATIONS: NONE SUICIDALITY: NONE HOMICIDALITY: NONE DELUSIONS: NONE BEHAVIOR: COOPERATIVE, PLEASANT JUDGMENT: FAIR INSIGHT: FAIR Continue Current Inpatient Psychotropic Regimen @ home Follow-Up with Psychiatric Provider Safety Plan Discussed DISCHARGE CONDITION: Her readiness for discharge is supported by his stable mental status, adherence to treatment, and proactive approach to managing his mental health. Denies SI. Denies HI. Denies A/V/H. The patient has been informed to continue follow-up care to ensure ongoing support and monitoring. Patient discharged to home. *Problems/Diagnosis: (1) Severe manic bipolar 1 disorder with psychotic behavior Total Time Spent on D/C: > 30 Minutes Counseling Services Smoking & Tobacco Cessation: N/A CODING VISIT-PSYCHIATRY Date of Service: December 20, 2024 Billing Provider: MELLISSA SILVER APRN Psych Common Visit Codes: [id number] DISCH DAY >30min MELLISSA SILVER APRN December 20, 2024 10:52
[2024-12-20] MEDS ORDERED: PALI3TAB5 PO (10:57)
[2024-12-20] MEDS ORDERED: QUET300T20 PO (10:57)
[2024-12-20] MEDS ORDERED: DULO60CA65 PO (10:57)
[2024-12-20] MEDS ORDERED: LITH300C PO (10:57)
[2024-12-20] MEDS ORDERED: LAMO200T10 PO (10:57)
[2024-12-20] MEDS ORDERED: BUSP5TAB26 PO (10:59)
== END 2024-12-20 15:24 | disposition home or self-care (01) | DRG 753 ==
LOC: ER 08:36 → UNDOADMIN 12:45 → ED HOLD 12:45 → ADULT MH 21:44 → ED HOLD 12-16 05:27 → UNDOADMIN 12-16 05:27 → ADULT MH 12-16 05:27
PROVIDERS: ADMIT Psychiatry & Neurology Psychiatry; ATTEND Psychiatry & Neurology Psychiatry
PROC: GZHZZZZ Group Psychotherapy (ICD-10-PCS; principal; 2024-12-16)
PROC: GZ51ZZZ Individual Psychotherapy, Behavioral (ICD-10-PCS; 2024-12-16)
DX: F31.2 Bipolar disorder, current episode manic severe with psychotic features (principal); R45.851 Suicidal ideations; E03.9 Hypothyroidism, unspecified; E78.00 Pure hypercholesterolemia, unspecified; G43.909 Migraine, unspecified, not intractable, without status migrainosus; Z20.822 Contact with and (suspected) exposure to COVID-19; F41.9 Anxiety disorder, unspecified; F60.3 Borderline personality disorder; E66.01 Morbid (severe) obesity due to excess calories; I10 Essential (primary) hypertension; R82.90 Unspecified abnormal findings in urine; G25.0 Essential tremor; G47.33 Obstructive sleep apnea (adult) (pediatric); G62.9 Polyneuropathy, unspecified; Z90.49 Acquired absence of other specified parts of digestive tract; Z87.891 Personal history of nicotine dependence; Z98.891 History of uterine scar from previous surgery; Z68.42 Body mass index [BMI] 45.0-49.9, adult; Z79.899 Other long term (current) drug therapy; Z80.3 Family history of malignant neoplasm of breast; Z59.00 Homelessness unspecified
CPT/HCPCS: 36415; 80048; 80053; 80305; 80320; 80329; 81001; 81025; 84439; 84443; 84480; 85025; 87081; 87811; 99285; A6250; G0378; Q0177

== ENCOUNTER 2025-05-17 11:01 | Emergency (ER) | payer MEDICAID ==
[~2025-05-17] VITALS: Ht 170.2 cm; Wt 128.7 kg
[~2025-05-17 11:01] MED LIST changes: +BUSP5TAB26 PO; -DULO30CA52 PO; +DULO60CA65 PO; -INDLA60C PO; +INDLA80C PO; +MODA100T31 PO; -QUET100T34 PO; +QUET300T20 PO; +RIME75TA PO; -SEMA1PEN3 SQ; +SEMA2PEN; +TEMA15CA PO; -TOP25T PO; +TOPI-95 PO
[2025-05-17 11:02] VITALS: BP 108/57; PULSE 55; RESP 18; TEMP 96.8; O2SAT 98
--- NOTE | 2025-05-17 15:53 | Physician Documentation ---
History of Present Illness ~ Chief Complaint: See Chief Complaint Stated Complaint: TREMORS Time Seen by MD: 13:05 Primary Medical Doctor: MARIAMA ANDREWS This is a 44-year-old female with a history of tremor disorder, patient reports she was diagnosed with this condition approximately six years ago though is concerned that it has been becoming progressively worse recently. Patient reports symptoms worse in upper extremities. Patient reports no other acute symptoms or concerns. Medication Reconciliation Allergies: Coded Allergies: No Known Allergies (Unverified , 05/17/25) Scheduled Atogepant (Qulipta), 1 TAB PO HS, (Reported) Atorvastatin Calcium (Atorvastatin Calcium), 1 TAB PO DAILY, (Reported) Buspirone Hcl (Buspirone Hcl), 10 MG PO TID Cetirizine HCl (Cetirizine HCl), 1 TAB PO HS, (Reported) Cholecalciferol (Vitamin D3) (Vitamin D3), 1 TAB PO DAILY, (Reported) Duloxetine HCl (Duloxetine HCl), 2 TAB PO DAILY Eszopiclone (Eszopiclone), 1 TAB PO HS, (Reported) Folic Acid* (Folic Acid*), 1 TAB PO DAILY, (Reported) Lamotrigine (Lamotrigine), 1 TAB PO BID Levothyroxine Sodium (Levothyroxine Sodium), 1 TAB PO DAILY, (Reported) [place] Carbonate ([place] Carbonate), 3 CAP PO HS Modafinil (Modafinil), 2 TAB PO DAILY, (Reported) Omeprazole (Prilosec), 1 CAP PO DAILY, (Reported) Paliperidone (Paliperidone ER), 1 TAB PO HS Primidone (Mysoline), 2.5 TAB PO HS, (Reported) Propranolol Hcl (Propranolol Hcl), 1 TAB PO DAILY, (Reported) Quetiapine Fumarate (Quetiapine Fumarate), 1 TAB PO HS Topiramate (Topiramate), 1 TAB PO BID, (Reported) Scheduled PRN Rimegepant Sulfate (Nurtec Odt), 1 TAB PO DAILY PRN for headache, (Reported) Temazepam (Temazepam), 1 CAP PO HS PRN for sleep, (Reported) Miscellaneous Medications Semaglutide (Ozempic), (Reported) Past Medical History Past Medical History: Migraine, Seizures, Depression Past Surgical History: cholecystectomy, Patient History: FH: bipolar disorder FATHER FH: breast cancer MOTHER Smoking Status: Unknown if ever smoked Alcohol Use: Rarely Drug Use: none, methamphetamine Lives with: Spouse Lives In: Homeless Review of Systems ROS As stated above in the HPI, otherwise all systems are reviewed and negative. Physical Exam Vital Signs: Temperature: 96.8, Source: Temporal, Heart Rate: 55, Respiratory Rate: 18, BP: 108/57, Pulse Oximetry: 98, Weight: 128.700 Oxygen Flow Rate: 0 General Appearance VITALS: Reviewed and as above. GENERAL: Alert, nontoxic appearing, no apparent distress. RESPIRATORY: No increased work of breathing, no respiratory distress, speaking in full clear sentences Progress Results/Orders Results/Orders Vital Signs 05/17/25 11:02 Temp 96.8 Pulse 55 Resp 18 B/P (MAP) 108/57 Pulse Ox 98 O2 Flow Rate 0 Medical Decision Making Findings MSE performed in triage and patient returned to ED lobby by nursing staff to await available ED room. Soon after being placed in available ED room patient informed registration staff that she was leaving, patient appears to have eloped from ED room. Differential Dx:Considerations: Include: Dickson's Palsey, CVA, Delirium tremens, DKA, Drug overdose, Electrolyte imbalance, Hypoglycemia, Mass lesion, TIA, Other (Parkinson's, seizure) Departure Disposition: 07 LEFT AWOL/ELOPED Impression: Primary Impression: Tremor Referrals: NO PRIMARY CARE PROVIDER (PCP) Signature Scribe Signature: No scribe Attestation: The note accurately reflects work and decisions made by me.ISABEL Yoon 05/17/25 15:53 Parts of this note were created using [employer] voice recognition software program. While efforts were made to correct any mistakes made by this voice recognition software program, nonsensical phrases may remain in this note. In addition, there may be errors and syntax, grammar, content and spelling. EVELYN CHURCHILL May 17, 2025 15:53
== END 2025-05-17 13:32 | disposition left against medical advice (07) ==
LOC: ER 11:02
DX: R25.1 Tremor, unspecified (principal); F15.90 Other stimulant use, unspecified, uncomplicated; Z90.49 Acquired absence of other specified parts of digestive tract
CPT/HCPCS: 99282

== ENCOUNTER 2025-06-16 10:56 | Emergency (ER) | payer MEDICAID ==
[~2025-06-16] VITALS: Ht 170.2 cm; Wt 121.3 kg
[2025-06-16 10:59] VITALS: TEMP 97.4
[2025-06-16] MEDS ORDERED: GABA-530 PO (12:17)
--- NOTE | 2025-06-16 12:17 | Physician Documentation ---
History of Present Illness ~ Chief Complaint: Tingling Stated Complaint: MULTIPLE MED COMPLAINTS Time Seen by MD: 11:23 OK to notify your PCP?: Yes Primary Medical Doctor: MARIAMA Source: patient Mode of Arrival: POV Exam Limitations: no limitations HPI 44-year-old female who is here due to tingling on both sides of her face which she states started four days ago. She denies any facial droop, denies any recent injections in her face. She denies a headache. She does state that five days ago, the day prior to onset of her symptoms, she discontinued her gabapentin which she was on 300 mg b.i.d.. She states she discontinued the gabapentin because she did not like how it was made her feel. Gabapentin was started by her psychiatrist for anxiety. Patient also reports that she has a cough and she is wondering if she can get some Tessalon Perles for this. She denies any sinus pain or congestion, sore throat, body aches, fever or chills. She denies shortness of breath. Medication Reconciliation Allergies: Coded Allergies: No Known Allergies (Unverified , 06/16/25) Scheduled Atogepant (Qulipta), 1 TAB PO HS, (Reported) Atorvastatin Calcium (Atorvastatin Calcium), 1 TAB PO DAILY, (Reported) Buspirone Hcl (Buspirone Hcl), 10 MG PO TID Cetirizine HCl (Cetirizine HCl), 1 TAB PO HS, (Reported) Cholecalciferol (Vitamin D3) (Vitamin D3), 1 TAB PO DAILY, (Reported) Duloxetine HCl (Duloxetine HCl), 2 TAB PO DAILY Eszopiclone (Eszopiclone), 1 TAB PO HS, (Reported) Folic Acid* (Folic Acid*), 1 TAB PO DAILY, (Reported) Gabapentin (Gabapentin), 1 CAP PO Q8H Lamotrigine (Lamotrigine), 1 TAB PO BID Levothyroxine Sodium (Levothyroxine Sodium), 1 TAB PO DAILY, (Reported) [place] Carbonate ([place] Carbonate), 3 CAP PO HS Modafinil (Modafinil), 2 TAB PO DAILY, (Reported) Omeprazole (Prilosec), 1 CAP PO DAILY, (Reported) Paliperidone (Paliperidone ER), 1 TAB PO HS Primidone (Mysoline), 2.5 TAB PO HS, (Reported) Propranolol Hcl (Propranolol Hcl), 1 TAB PO DAILY, (Reported) Quetiapine Fumarate (Quetiapine Fumarate), 1 TAB PO HS Topiramate (Topiramate), 1 TAB PO BID, (Reported) Scheduled PRN Rimegepant Sulfate (Nurtec Odt), 1 TAB PO DAILY PRN for headache, (Reported) Temazepam (Temazepam), 1 CAP PO HS PRN for sleep, (Reported) Miscellaneous Medications Semaglutide (Ozempic), (Reported) Past Medical History Past Medical History: Migraine, Seizures, Depression Past Surgical History: cholecystectomy, Patient History: FH: bipolar disorder FATHER FH: breast cancer MOTHER Alcohol Use: Rarely Drug Use: none, methamphetamine Lives with: Spouse Lives In: Homeless Review of Systems All Other Systems at this time: Reviewed and Negative Physical Exam Vital Signs: Temperature: 97.4, Source: Temporal, Heart Rate: 106, Respiratory Rate: 20, BP: 117/78, Pulse Oximetry: 97, Weight: 121.300 Oxygen Flow Rate: 0 General Appearance GENERAL: Alert, no acute distress. HEENT: NCAT, EOMI, PERRL, normal oropharynx, moist oral mucosa. NECK: Supple, trachea midline. CARDIAC: Regular rate and rhythm, no murmurs, rubs, or gallops. Equal distal pulses. No lower extremity edema, cap refill less than 2 seconds. RESPIRATORY: Equal breath sounds, clear to auscultation bilaterally, no respiratory distress. GASTROINTESTINAL: Non distended, soft, nontender, No guarding or rebound. MUSCULOSKELETAL: Normal range of motion, nontender, no swelling. Normal gait. NEUROLOGICAL: Awake, alert, and oriented x 3. CN 2-12 INTACT SKIN: Warm/dry, no pallor, no rash. PSYCH: Alert and appropriate. Affect congruent with mood. Speech is clear. Good eye contact. Progress Results/Orders Results/Orders Vital Signs 06/16/25 10:59 Temp 97.4 Pulse 106 Resp 20 B/P (MAP) 117/78 Pulse Ox 97 O2 Flow Rate 0 Medical Decision Making Additional information obtaine: N/A Findings N/A Differential Dx:Considerations: Include: Dickson's Palsey, CVA, Delirium tremens, DKA, Drug overdose, Electrolyte imbalance, Encephalopathy, Hypoxemia, Hypoglycemia, Mass lesion, Respiratory failure, Subarachnoid Hemorrhage, TIA, Other Additional Information CONSIDERING SYMPTOMS STARTED 24HOURS AFTER SHE DISCONTINUED GABAPENTIN AND SHE HAS NO OTHER ASSOCIATED SYMPTOMS I SUSPECT HER SYMPTOMS MAY BE RELATED? SHE HAS NO FACIAL DROOP OR SYMPTOMS OF STROKE. THE TINGLING IS BILATERAL ON HER FACE- DOES NOT FOLLOW A DERMATOMAL/NERVE DISTRIBUTION. WE MUTUALLY AGREED TO GIVE HER LOWER DOSAGE OF GABAPENTIN SO THAT SHE DOES NOT HAVE TO GO FROM 300MG TO NOTHING SO THAT IT IS MORE OF GRADUAL TAPERED DOSAGE. Departure Time of Disposition: 12:17 Disposition: HOME / SELF CARE / HOMELESS Impression: Primary Impression: Tingling Additional Impression: Cough Qualified Codes: R05.1 - Acute cough Condition: Stable Discharge Instructions: General Discharge Instructions Additional Instructions: gabapentin rx sent to pharmacy f/u with pcp next week Referrals: NO PRIMARY CARE PROVIDER (PCP) Prescriptions Benzonatate* (Benzonatate*) 100 Mg Capsule 1-2 CAP PO Q8H for cough for 5 Days, #30 CAP Prov: IAN GARCIA 06/16/25 Gabapentin (Gabapentin) 100 Mg Capsule 1 CAP PO Q8H for 4 Days, #12 CAP 0 Refills Prov: IAN GARCIA 06/16/25 Education Educated: Patient Educated regarding: diagnosis, treatment, need for follow up Signature Scribe Signature: Azeb Attestation: IAN DUMONT Jun 16, 2025 12:17
[2025-06-16] MEDS ORDERED: BENZ-38 PO (12:30)
[2025-06-16 12:43] VITALS: BP 124/75; PULSE 101; RESP 18; O2SAT 95
== END 2025-06-16 12:46 | disposition home or self-care (01) ==
LOC: ER 10:58
DX: R20.2 Paresthesia of skin (principal); R05.9 Cough, unspecified; G43.909 Migraine, unspecified, not intractable, without status migrainosus; F31.9 Bipolar disorder, unspecified; F41.9 Anxiety disorder, unspecified; F15.90 Other stimulant use, unspecified, uncomplicated; Z90.49 Acquired absence of other specified parts of digestive tract
CPT/HCPCS: 99283